=== PATIENT | male | born 1950 | race Caucasian/White ===

== ENCOUNTER 2025-03-17 07:51 | Inpatient (IN) ==
--- NOTE | 2025-03-17 08:09 | Emergency Department Note ---
Impression & Plan Ambulatory dysfunction Admission ED Provider Note HPI: History obtained from patient. The patient is a 74-year-old gentleman with morbid obesity, osteoarthritis of the bilateral knees, presents the emergency department with a chief complaint of a fall at home. Patient states he was trying to get to the bathroom this morning and he could not make it, he states his knees felt very weak. Patient states he had to slide to the ground utilizing the wall as a support. Patient states he then had to crawl on his knees to get back up. Patient then came to the ER to be assessed for ambulatory dysfunction and his fall. Patient states generally he feels weak. Patient states he has "[id number]" osteoarthritis in his bilateral knees for which she had some type of injection done yesterday in both knees. Patient states he feels like his knees are weak. On arrival here to the ED the patient does not have any focal deficits, he denies any focal complaint of pain, he otherwise appears to be in no acute distress on arrival. ROS: - Per HPI Differential Diagnosis: Acute on chronic deconditioning/ambulatory dysfunction, ambulatory dysfunction secondary to osteoarthritis, fracture/dislocation of the knee, arrhythmia, ACS, critical electrolyte abnormalities, acute kidney injury/dehydration, weakness secondary to infection/sepsis, amongst other potential pathologies. *Outpatient medications and allergy history reviewed. PE: General: Alert, morbidly obese, no acute distress HEENT: Normocephalic, trachea midline Eyes: Extraocular eye movement is intact, no scleral erythema Pulmonary: Clear to auscultation bilaterally, no wheezing Cardio: Regular rate and rhythm GI: Abdomen is soft to palpation : No suprapubic tenderness MSK: No evidence of trauma or malformation of the extremities, no edema, patient maintains flexion of the hips bilaterally Skin: There is erythema overlying the bilateral knees without any open wounds or lacerations, otherwise no evidence of rash Neuro: Alert, no focal deficits Psychiatric: Cooperative INDEPENDENT INTERPRETATIONS: monitoring coordinator: (As interpreted by myself): - An order was placed for continuous cardiac monitoring - Patient was noted to be in sinus rhythm with a rate of 80 EKG: (As interpreted by myself): Rate: 81 Rhythm: Normal sinus rhythm Intervals: Within normal limits ST changes: No ST elevation Time: 0800 Chest x-ray: (As interpreted by myself): No acute disease Medical Decision Making: IV was established and lab work obtained. Lab work shows no leukocytosis, hemoglobin is normal, platelet count is normal, CMP does not show any evidence of any critical findings. Troponin is negative x 1. EKG shows normal sinus rhythm without any evidence of any acute ischemic changes or arrhythmia per my interpretation. Urinalysis does not show any evidence of infection or ketones. X-ray imaging of the chest shows no acute disease, x-ray imaging of the bilateral knees does not show any evidence of fracture. Patient stated that he has had increased ambulatory dysfunction at home, he does have osteoarthritis in both of his knees. Ambulatory trial was attempted here in the ED without success. Patient was unable to walk even with utilization of his walker. At this point he will require admission for PT/OT consultation. I discussed this with the patient, he was in agreement for admission. Case was discussed with the on-call midlevel provider for [facility], and patient was placed for admission in stable condition. Consultants/Discussions held with other healthcare providers: - [facility] Hospitalist, Dr. Bolivar Disposition discussion held by myself with: - Patient Diagnosis: 1. Ambulatory dysfunction, acute 2. Bilateral knee abrasions, acute 3. Mechanical fall, acute Disposition: Admission Ramon Clark DO Emergency Medicine Past Med/Surg History Problem List (Updated 03/17/25 @ 13:23 by Ramon Clark DO) Ambulatory dysfunction (Acute) Benign localized prostatic hyperplasia with lower urinary tract symptoms (LUTS) Encounter for pre-operative examination Gross hematuria Hyperlipidemia High blood pressure Medical History Anxiety Bladder mass Degenerative disc disease Depression Hearing deficit High blood pressure History of skin cancer Hyperlipidemia Neuropathy Osteoarthritis Sleep apnea Spinal stenosis Surgical History H/O: vasectomy History of carpal tunnel release of both wrists History of colonoscopy History of elbow surgery History of lumbar fusion Hx of cholecystectomy Hx of tonsillectomy Family History Father Heart disease Sister Breast cancer Mother PONV (postoperative nausea and vomiting) Grandfather (Maternal) Diabetes Social History Smoking Status: Never smoker Second Hand Exposure: Yes ( A CHILD); Do You Dip or Chew Tobacco: No; Hx Alcohol Use: No Hx Substance Use: No Preferred Language: Salvadorean Communication Ability: Effective Foreign Languages Professor Required: No Beliefs That Will Affect Care: None marital status: Current Living Situation: Spouse current occupational status: retired Feels Safe at Home: Yes Diet: regular Assistive Devices: Cane, CPAP and Hearing Aid - Bilateral Allergies Allergies Allergy/AdvReac Type Severity Reaction Status Date / Time furosemide Allergy Intermediate RASH Verified 03/08/21 10:52 Quinolones Allergy Intermediate RASH Verified 03/08/21 10:52 amoxicillin AdvReac Intermediate RASH Verified 03/08/21 10:52 clavulanic acid AdvReac Intermediate RASH Verified 03/08/21 10:52 Home Meds Home Medications Medication Instructions Recorded Confirmed acetaminophen 500 mg tablet 1,000 mg PO TID 05/05/20 03/17/25 (Tylenol Extra Strength) aspirin 81 mg tablet,delayed 81 mg PO .MON,SAT,Saturday05/05/20 03/17/25 release bupropion HCl 100 mg tablet,12 hr 100 mg PO BID 05/05/20 03/17/25 sustained-release cholecalciferol (vitamin D3) 25 75 mcg PO PM 05/05/20 03/17/25 mcg (1,000 unit) capsule (Vitamin D3) gabapentin 300 mg capsule 600 mg PO QID 05/05/20 03/17/25 hydrocodone 5 mg-acetaminophen 325 0.5 tab PO TID PRN Pain 05/05/20 03/17/25 mg tablet lamotrigine 100 mg tablet 100 mg PO HS 05/05/20 03/17/25 multivitamin 1 tab PO QAM 05/05/20 03/17/25 pyridoxine (vitamin B6) 100 mg 100 mg PO BID 05/05/20 03/17/25 tablet (Vitamin B-6) sennosides 8.6 mg-docusate sodium 2 tab-cap PO BID 05/05/20 03/17/25 50 mg tablet (Senna-S) simvastatin 10 mg tablet 10 mg PO HS 05/05/20 03/17/25 valbenazine 80 mg capsule 80 mg PO HS 05/05/20 03/17/25 (Ingrezza) diclofenac sodium 1 % topical gel 2 g topical QID 03/17/25 03/17/25 finasteride 5 mg tablet 5 mg PO .DAILY@NOON 03/17/25 03/17/25 levothyroxine 75 mcg tablet 75 mcg PO DAILY 03/17/25 03/17/25 melatonin 3 mg tablet 3 mg PO HS 03/17/25 03/17/25 polyethylene glycol 3350 17 17 g PO DAILY PRN Constipation 03/17/25 03/17/25 gram/dose oral powder (Miralax) Results & Data (ED) Vital Signs Vital Signs - 24 hr 03/17/25 07:52 03/17/25 08:02 03/17/25 08:26 Temperature 36.5 C Temperature Source Oral Pulse Rate - Lying Pulse Rate - Sitting Pulse Rate - Standing Pulse Rate 82 74 Pulse Rate [Left Finger] Respiratory Rate 22 Respiratory Effort / Characteristics Non-Labored Spontaneous Respiratory Depth Normal Respiratory Pattern Regular Blood Pressure - Lying Blood Pressure - Sitting Blood Pressure- Standing Blood Pressure 150/88 H Blood Pressure [Left Arm] Blood Pressure Mean 108 Blood Pressure Mean [Left Arm] Pulse Oximetry 97 97 Oxygen Delivery Method Room Air Room Air Sepsis Recent Fever Within 48 Hours No Sepsis New/Unexplained Change in Mental Status N/A Sepsis Action Taken by Nursing No Action Required 03/17/25 08:31 03/17/25 09:30 03/17/25 10:00 Temperature Temperature Source Pulse Rate - Lying Pulse Rate - Sitting Pulse Rate - Standing Pulse Rate 75 67 75 Pulse Rate [Left Finger] Respiratory Rate 24 22 24 Respiratory Effort / Characteristics Respiratory Depth Respiratory Pattern Blood Pressure - Lying Blood Pressure - Sitting Blood Pressure- Standing Blood Pressure 141/79 H 156/91 H 143/78 H Blood Pressure [Left Arm] Blood Pressure Mean 81 127 107 Blood Pressure Mean [Left Arm] Pulse Oximetry 98 99 99 Oxygen Delivery Method Room Air Room Air Room Air Sepsis Recent Fever Within 48 Hours Sepsis New/Unexplained Change in Mental Status Sepsis Action Taken by Nursing 03/17/25 10:30 03/17/25 11:10 03/17/25 12:47 Temperature Temperature Source Pulse Rate - Lying 72 Pulse Rate - Sitting 92 H Pulse Rate - Standing 108 H Pulse Rate 73 76 Pulse Rate [Left Finger] Respiratory Rate 26 H Respiratory Effort / Characteristics Respiratory Depth Respiratory Pattern Blood Pressure - Lying 164/82 H Blood Pressure - Sitting 144/95 H Blood Pressure- Standing 116/77 Blood Pressure 155/80 H Blood Pressure [Left Arm] Blood Pressure Mean 100 Blood Pressure Mean [Left Arm] Pulse Oximetry 99 Oxygen Delivery Method Room Air Sepsis Recent Fever Within 48 Hours Sepsis New/Unexplained Change in Mental Status Sepsis Action Taken by Nursing 03/17/25 13:00 Temperature Temperature Source Pulse Rate - Lying Pulse Rate - Sitting Pulse Rate - Standing Pulse Rate Pulse Rate [Left Finger] 88 Respiratory Rate 16 Respiratory Effort / Characteristics Respiratory Depth Respiratory Pattern Blood Pressure - Lying Blood Pressure - Sitting Blood Pressure- Standing Blood Pressure Blood Pressure [Left Arm] 118/74 Blood Pressure Mean Blood Pressure Mean [Left Arm] 88 Pulse Oximetry 98 Oxygen Delivery Method Sepsis Recent Fever Within 48 Hours Sepsis New/Unexplained Change in Mental Status Sepsis Action Taken by Nursing Laboratory Data 03/17/25 08:22 03/17/25 08:22 Lab Results 03/17/25 03/17/25 Range/Units 07:57 08:22 WBC 8.69 (4.8-10.8) K/ul RBC 4.41 L (4.70-6.10) M/uL Hgb 14.1 (14.0-18.0) g/dl Hct 41.4 L (42.0-52.0) % MCV 93.9 (80.0-100.0) fL MCH 32.0 (25.0-34.0) pg MCHC 34.1 (32.0-36.0) g/dL RDW Std Deviation 45.8 (36.4-46.3) fL RDW Coeff of [place] 13.3 (11.5-14.5) % Plt Count 174 (130-400) K/uL MPV 10.1 (9.4-12.4) fL Immature Gran % (Auto) 0.6 % Neut % (Auto) 81.4 % Lymph % (Auto) 8.6 % Russell % (Auto) 9.3 % Eos % (Auto) 0.0 % Baso % (Auto) 0.1 % Neut # (Auto) 7.07 H (1.40-6.50) K/uL Lymph # (Auto) 0.75 L (1.20-3.40) K/uL Russell # (Auto) 0.81 H (0.11-0.59) K/uL Eos # (Auto) 0.00 (0.00-0.50) K/uL Baso # (Auto) 0.01 (0.00-0.20) K/uL Immature Gran # (Auto) 0.05 (0.01-0.20) K/uL PT 11.1 (9.0-12.0) Seconds INR 1.0 (0.9-1.1) Sodium 139 (136-145) mmol/L Potassium 4.2 (3.5-5.1) mmol/L Chloride 107 (98-107) mmol/L Carbon Dioxide 22 (21-32) mmol/L Anion Gap 10 (3-11) BUN 14 (6-23) mg/dl Creatinine 0.91 (0.6-1.4) mg/dl Est Cr Clr Drug Dosing 109.6 ml/min eGFR 88.44 BUN/Creatinine Ratio 15.4 (10-20) Glucose 126 H (70-99(Fasting)) mg/dl Calcium 9.1 (8.6-10.3) mg/dl Total Bilirubin 0.7 (0.2-1.0) mg/dl AST 17 (13-39) U/L ALT 12 (7-52) U/L Alkaline Phosphatase 53 (34-104) U/L Troponin I High Sens 2.5 (0-20) pg/ml Total Protein 6.7 (6.0-8.3) gm/dl Albumin 3.8 (3.4-5.0) gm/dl Globulin 2.9 (2.5-4.0) gm/dl Albumin/Globulin Ratio 1.3 (0.9-2) Lipase 12 (11-82) U/L Urine Color Yellow Urine Appearance Clear (Clear) Urine pH 7.0 (4.5-7.5) Ur Specific [place] 1.018 (1.000-1.030) Urine Protein Negative (Negative) Urine Glucose (UA) Negative (Negative) Urine Ketones Negative (Negative) Urine Blood Negative (Negative) Urine Nitrite Negative (Negative) Urine Bilirubin Negative (Negative) Urine Urobilinogen Negative (Negative) Ur Leukocyte Esterase Negative (Negative) Administered Medications Discontinued Medications Hydrocodone Bitart/Acetaminophen (Hydrocodone/Acetamophen 5/325mg Tab) Confirm Administered Dose 1 tab PO .STK-MED ONE Stop: 03/17/25 13:07 Last Admin: 03/17/25 13:09 Dose: 0.5 tab Documented By: AMIE Imaging Data Radiologist's Impression: Chest X-Ray 03/17/25 08:02 XR chest 1V portable CLINICAL HISTORY: weak COMPARISON STUDY: None FINDINGS: Lower thoracic spine neurostimulator lead is present. Heart size and pulmonary vasculature are normal. No effusion, consolidation, or pneumothorax. IMPRESSION: No acute findings. ACT 112: Negative or not required by law. Electronically signed by: Sunday Oreilly M.D. 03/17/2025 8:49 AM Knee X-Ray 03/17/25 08:06 XR knee LT 3V, XR knee RT 3V CLINICAL HISTORY: fall COMPARISON: None FINDINGS: There is severe medial compartment narrowing with osteophytosis at both knees consistent with osteoarthritis. There is a small metallic soft tissue foreign body in the medial superficial soft tissues of the left knee. No acute fracture or dislocation seen at either knee. IMPRESSION: 1. No fracture seen in either knee. 2. Otherwise as described. ACT 112: Negative or not required by law. Electronically signed by: Sunday Oreilly M.D. 03/17/2025 8:50 AM Knee X-Ray 03/17/25 08:06 XR knee LT 3V, XR knee RT 3V CLINICAL HISTORY: fall COMPARISON: None FINDINGS: There is severe medial compartment narrowing with osteophytosis at both knees consistent with osteoarthritis. There is a small metallic soft tissue foreign body in the medial superficial soft tissues of the left knee. No acute fracture or dislocation seen at either knee. IMPRESSION: 1. No fracture seen in either knee. 2. Otherwise as described. ACT 112: Negative or not required by law. Electronically signed by: Sunday Oreilly M.D. 03/17/2025 8:50 AM Discharge Plan Visit Data Chief Complaint: Leg Weakness, Bilateral Stated Complaint: WEAKNESS, UNABLE TO AMBULATE ED Provider: Ramon Clark Discharge Problem: Ambulatory dysfunction Forms Stand Alone Forms: [facility] Prescriptions Prescriptions: No Action multivitamin Tablet 1 tab PO QAM hydrocodone-acetaminophen 5-325 mg Tablet 0.5 tab PO TID PRN (Reason: Pain) sennosides-docusate sodium [Senna-S] 8.6-50 mg Tablet 2 tab-cap PO BID simvastatin 10 mg Tablet 10 mg PO HS aspirin 81 mg Tablet,Delayed Release (Dr/Ec) 81 mg PO .MON,WED,SATURDAY acetaminophen [Tylenol Extra Strength] 500 mg Tablet 1,000 mg PO TID bupropion HCl 100 mg Tablet Sustained-Release 12 Hr 100 mg PO BID gabapentin 300 mg Capsule 600 mg PO QID pyridoxine (vitamin B6) [Vitamin B-6] 100 mg Tablet 100 mg PO BID lamotrigine 100 mg Tablet 100 mg PO HS cholecalciferol (vitamin D3) [Vitamin D3] 25 mcg (1,000 unit) Capsule 75 mcg PO PM Ingrezza 80 mg Capsule 80 mg PO HS levothyroxine 75 mcg tablet 75 mcg PO DAILY melatonin 3 mg Tablet 3 mg PO HS polyethylene glycol 3350 [Miralax] 17 gram/dose Powder 17 g PO DAILY PRN (Reason: Constipation) diclofenac sodium 1 % gel 2 g TOPICAL QID finasteride 5 mg tablet 5 mg PO .DAILY@NOON Referrals Referrals: Rosemary Leonard MD [Primary Care Provider] -
[2025-03-17 08:31] LABS: Appearance Urine Clear (Clear); Bilirubin Urine Negative (Negative); Blood Urine Negative (Negative); Color Urine Yellow; Glucose Urine UA Negative (Negative); Ketones Urine Negative (Negative); Leukocyte Esterase Urine Negative (Negative); Nitrite Urine Negative (Negative); Protein Urine Negative (Negative); Specific Gravity Urine 1.018 (1.000-1.030); Urobilinogen Urine Negative (Negative)
[2025-03-17 08:45] LABS: Basophils # (auto) 0.01 K/uL (0.00-0.20); Basophils % (auto) 0.1 %; Hematocrit (blood only) 41.4 % (42.0-52.0); Hemoglobin 14.1 g/dl (14.0-18.0); Immature Granulocytes # (auto) 0.05 K/uL (0.01-0.20); Immature Granulocytes % (auto) 0.6 %; Lymphocytes # (auto) 0.75 K/uL (1.20-3.40); Lymphocytes % (auto) 8.6 %; Mean Corpuscular Hgb Conc 34.1 g/dL (32.0-36.0); Mean Corpuscular Volume 93.9 fL (80.0-100.0); Mean Platelet Volume 10.1 fL (9.4-12.4); Monocytes # (auto) 0.81 K/uL (0.11-0.59); Monocytes % (auto) 9.3 %; Neutrophils # (auto) 7.07 K/uL (1.40-6.50); Neutrophils % (auto) 81.4 %; Platelet Count 174 K/uL (130-400); RDW Coefficient of Variation 13.3 % (11.5-14.5); RDW Standard Deviation 45.8 fL (36.4-46.3); Red Blood Count 4.41 M/uL (4.70-6.10); White Blood Count 8.69 K/ul (4.8-10.8)
--- NOTE | 2025-03-17 08:50 | XRay Report ---
XR chest 1V portable CLINICAL HISTORY: weak COMPARISON STUDY: None FINDINGS: Lower thoracic spine neurostimulator lead is present. Heart size and pulmonary vasculature are normal. No effusion, consolidation, or pneumothorax. IMPRESSION: No acute findings. ACT 112: Negative or not required by law. Electronically signed by: Sunday Oreilly M.D. 03/17/2025 8:49 AM
--- NOTE | 2025-03-17 08:51 | XRay Report ---
XR knee LT 3V, XR knee RT 3V CLINICAL HISTORY: fall COMPARISON: None FINDINGS: There is severe medial compartment narrowing with osteophytosis at both knees consistent w ith osteoarthritis. There is a small metallic soft tissue foreign body in the medial superficial soft tissues of the left knee. No acute fracture or dislocation seen at either knee. IMPRESSION: 1. No fracture seen in either knee. 2. Otherwise as described. ACT 112: Negative or not required by law. Electronically signed by: Sunday Oreilly M.D. 03/17/2025 8:50 AM
[2025-03-17 08:58] LABS: Albumin Globulin Ratio 1.3 (0.9-2); Albumin Level 3.8 gm/dl (3.4-5.0); BUN Creatinine Ratio 15.4 (10-20); Bilirubin,Total 0.7 mg/dl (0.2-1.0); Calcium 9.1 mg/dl (8.6-10.3); Creatinine Clr Calc Pharmacy 109.6 ml/min; Globulin 2.9 gm/dl (2.5-4.0); Potassium 4.2 mmol/L (3.5-5.1); Total Protein 6.7 gm/dl (6.0-8.3)
[2025-03-17 09:03] LABS: Troponin I High Sensitivity 2.5 pg/ml (0-20)
[2025-03-17 09:16] LABS: Prothrombin Time 11.1 Seconds (9.0-12.0)
--- NOTE | 2025-03-17 10:37 | Electrocardiogram Report ---
Test Reason : Blood Pressure : */* mmHG Vent. Rate : 81 BPM Atrial Rate : 81 BPM P-R Int : 196 ms QRS Dur : 64 ms QT Int : 368 ms P-R-T Axes : 81 -23 37 degrees QTcB Int : 427 ms Normal sinus rhythm Inferior infarct , age undetermined Abnormal ECG When compared with ECG of 11-May-2020 09:52, Inferior infarct is now Present Confirmed by Miguel Angel Pickering ([id number]) on 03/17/2025 10:36:45 AM Referred By: Confirmed By: Miguel Angel Pickering
--- OUTSIDE RECORDS SUMMARY | 2025-03-17 11:08 | External Medical Summary ---
Author Name Unknown Address Unknown Organization K01:[facility] - [address] [facility] [address] [facility] [address] Laboratory Report Ordering Provider Test Date Status GLENDYMIKE 03/02/2025 10:35:31 Final Observation Date Value Abnormality Reference (Units ) Status T4, Free 03/02/2025 10:35:31 1.3 0.9-1.7 (n g/dL) Final Performing Location [facility] - [address] [facility] [address]
--- OUTSIDE RECORDS SUMMARY | 2025-03-17 11:08 | External Medical Summary | Summary of Care ---
Author Name Unknown Organization [facility] Address [address] [place] [address] Phone [phone] Care Team Providers Care Therapeutic Recreation Assistant Name Role Phone Rosemary Leonard MD Primary Care Provider [phone] Reason for Visit * Reason Comments Outpatient Testing Encounter Details Date Type Department Care Team (Late st Contact Info) Description 03/02/2025 10:30 AM EDT Laboratory Laboratory [address] [place] [phone] [place] [address] Flora type IIa hyperlipoproteinemia; Hypothyroidism; BPH with obstruction/lower urinary tract symptoms; Dyslipidemia, goal LDL below 130; Demyelinating neuropathy; Vitamin D deficiency Allergies Active Allergy Reactions Criticality Noted Date Comments Ciprofloxacin Hives 06/11/2001 blisters Furosemide Hives 06/11/2001 blisters documented as of this encounter (statuses as of 03/02/2025) Medications ZOCOR TABS 10 MG ORIndications:Mix ed dyslipidemia one tab by mouth daily at bedtime 90 2 2 Active ASPIRIN 81 MG PO TBEC daily Active MULTI-VITAMINS PO TABS daily Active clonazePAM (KLONOPIN) 0.5 MG Tablet 1 daily 6 Active HYDROcodone-aceta minophen 5-325 mg per tab 5-325 MG per tablet 1 three times daily as needed 6 Active pyridOXINE (VITAMIN B-6) 100 MG Tablet Take 1 Tablet by mouth in the morning. Active Valbenazine Tosylate (INGREZZA) 80 MG CAPS Take by mouth once. Active Cholecalciferol (VITAMIN D3) 125 MCG (5000 UT) Tablet Take 1 Capsule by mouth in the morning. Active Diclofenac Sodium 1 % External Gel (Voltaren) apply 2 grams to skin of knees four times a day 800 g 1 07/01/2024 12:14 PM EDT 4 Active Sennosides-Docusa te Sodium 8.6-50 MG Oral Tablet (Senna S) take 2 tablets by mouth in the morning and 2 tablets in the evening 360 Tablet 1 12/10/2024 3:18 PM EST 4 Active Simvastatin 10 MG Oral Tablet (Zocor) take one tablet by mouth at bedtime 90 Tablet 12/08/2024 11:14 AM EST 4 Active Gabapentin 300 MG Oral Capsule (Neurontin) take two capsules by mouth four times a day for numbness and pain of feet 720 Capsule 1 03/01/2025 6:11 PM EDT 4 Active Levothyroxine Sodium 75 MCG Oral Tablet (Levoxyl) take one tablet by mouth in the morning on empty stomach 90 Tablet 12/28/2024 10:42 AM EST 5 Active Finasteride 5 MG Oral Tablet (Proscar) take one tablet by mouth daily at noon 90 Tablet 01/14/2025 5:16 PM EST 5 Active buPROPion HCl ER (SR) 100 MG Oral Tablet Extended Release 12 Hour (Wellbutrin SR) take one tablet by mouth twice a day 180 Tablet 02/04/2025 3:58 PM EDT 5 Active lamoTRIgine 100 MG Oral Tablet (LaMICtal) take 1 tablet by mouth at night 90 Tablet 5 Active documented as of this encounter (statuses as of 03/02/2025) Active Problems Problem Noted Date Diagnosed Date Hx of actinic keratosis 12/14/2020 Polyneuropathy 08/19/2018 Numbness and tingling in both hands 01/22/2017 Carpal tunnel syndrome 11/22/2005 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 BACKACHE NOS 03/17/2003 LUMBAGO Mixed dyslipidemia GENERALIZED ANXIETY DIS OBESITY, UNSPECIFIED Sleep apnea Other seborrheic keratosis Sensorineural hearing loss, bilateral Presbyacusis Deviated nasal septum documented as of this encounter (statuses as of 03/02/2025) Immunizations Name Administration Dates Next Due COVID-19 mRNA, LNP-s, No Pre serve, 2-Dose Series (Pfizer) 09/05/2021 COVID-19, MRNA-LNP, PF, 30 M CG/0.3 mL, 12 YRS AND ABOVE, IM (PFIZER-Comirnaty) 09/22/2024 Season Influenza, Quad, PF, Adjuvanted, 65+ Yrs, IM (FLUAD) 09/09/2020 Seasonal Influenza Vac., MDV, IM, 0.5 mL (Fluzon e) 09/14/2002 Seasonal Influenza, High Dos e, Trivalent, PF, IM (Fluzone HD) 09/05/2024 Seasonal Influenza, PF, 6 M & above, IM , (FluLaval or Fluzone) 11/24/2018 Seasonal Influenza, Quadrivalent Hd (Fluzone Hd) 09/14/2023,09/14/2021 Seasonal Influenza, Quadrivalent, No Preserve, I M 11/02/2016,10/07/2015 Seasonal Influenza, Trivalen t, Adjuvanted, 65+ YRS, PF, (Fluad) 11/23/2019 documented as of this encounter Social History Tobacco Use Types Packs/Day Years Used Date Smoking Tobacco: Never Smokeless Tobacco: Never Alcohol Use Standard Drinks/Week Comments No 0 (1 standard drink = 0.6 oz pur e alcohol) Sex and Gender Information Value Date Recorded Sex Assigned at Not on file Legal Sex Male 5:27 AM EST Gender Identity Not on file Sexual Orientation Not on file documented as of this encounter Plan of Treatment Upcoming Encounters Date Type Department Care Team (Late st Contact Info) Description 01/25/2026 3:00 PM EST Office Visit [address] [place] [phone] Liberty Ramos PA-C [address] [place] [address] [place] [address] Pending Results Name Type Priority Associated Diagnoses Date /Time LIPID PANEL WITH DIRECT LDL IF TG IS HIGH Lab Routine 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 Dyslipidemia, goal LDL below 130 Demyelinating neuropathy Vitamin D deficiency 03/02/2025 10:35 AM EDT TSH Lab Routine 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 Dyslipidemia, goal LDL below 130 Demyelinating neuropathy Vitamin D deficiency 03/02/2025 10:35 AM EDT T3, FREE Lab Routine 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 Dyslipidemia, goal LDL below 130 Demyelinating neuropathy Vitamin D deficiency 03/02/2025 10:35 AM EDT T4, FREE Lab Routine 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 Dyslipidemia, goal LDL below 130 Demyelinating neuropathy Vitamin D deficiency 03/02/2025 10:35 AM EDT COMPREHENSIVE METABOLIC PANEL Lab Routine 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 Dyslipidemia, goal LDL below 130 Demyelinating neuropathy Vitamin D deficiency 03/02/2025 10:35 AM EDT PSA Lab Routine 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 Dyslipidemia, goal LDL below 130 Demyelinating neuropathy Vitamin D deficiency 03/02/2025 10:35 AM EDT CBC WITH WBC DIFFERENTIAL Lab Routine 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 Dyslipidemia, goal LDL below 130 Demyelinating neuropathy Vitamin D deficiency 03/02/2025 10:35 AM EDT 25-HYDROXY VITAMIN D Lab Routine 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 Dyslipidemia, goal LDL below 130 Demyelinating neuropathy Vitamin D deficiency 03/02/2025 10:35 AM EDT CBC Lab Routine 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 Dyslipidemia, goal LDL below 130 Demyelinating neuropathy Vitamin D deficiency 03/02/2025 10:35 AM EDT DIFFERENTIAL, AUTOMATED Lab Routine 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 Dyslipidemia, goal LDL below 130 Demyelinating neuropathy Vitamin D deficiency 03/02/2025 10:35 AM EDT Scheduled Procedures Name Priority Associated Diagnoses Date/Ti me COLONOSCOPY FLEXIBLE PROXIMAL DIAGNOSTIC Recall History of colon polyps Health Maintenance Due Date Last Done Comments Depression Screening 1962 Hepatitis C Screening 1968 DTap/Tdap Vaccines (1 - Tdap) 1969 Cologuard 1995 Sigmoidoscopy 1995 Pneumococcal Vaccine: 50+ Years (1 of 1 - PCV) 2000 Zoster Vaccines (1 of 2) 2000 Fecal Occult Blood Test 04/02/2013 04/02/20 12, 07/17/2011, 03/18/2009 Colonoscopy 01/15/2025 01/15/2020, 12/27, 12/10/2019, Additional history exists Colorectal Cancer Screening 01/15/2025 COVID-19 Vaccine ( season) 2025 09/22/2024, 09/05/2021 TSH 03/24/2025 03/24/2024, 07/27, 01/08/2023, Additional history exists Lipid Panel 03/24/2029 03/24/2024, 07/27, 05/23/2022, Additional history exists RETIRED - COLONOSCOPY-EVERY 5 YRS AGES 18-100 Discontinued 01/15/2020, 01/15/2020, 12/10/2019, Additional history exists Influenza Vaccine (FLU shot) Completed 09/05/2024, 09/05/2024, 09/14/2023, Additional history exists HPV (Gardasil) Vaccine Aged Out No lo nger eligible based on patient's age to complete this topic Hepatitis B Vaccine Aged Out No longe r eligible based on patient's age to complete this topic MENINGOCOCCAL (MENACTRA/MENVEO) Aged Out No longer eligible based on patient's age to complete this topic Meningitis B Vaccine (Bexsero/Trumemba) Aged Out No longer eligible based on patient's age to complete this topic documented as of this encounter Medical Devices Not on filedocumented as of this encounter Visit Diagnoses Diagnosis Flora type IIa hyperlipoproteinemia Pure hypercholesterolemia Hypothyroidism Unspecified hypothyroidism BPH with obstruction/lower urinary tract symptoms Hypertrophy of prostate with urinary obstruction and other lower urinary tract symptoms (LUTS) Dyslipidemia, goal LDL below 130 Other and unspecified hyperlipidemia Demyelinating neuropathy Mononeuritis of unspecified site Vitamin D deficiency Unspecified vitamin D deficiency documented in this encounter Care Teams Therapeutic Recreation Assistant Relationship Specialty Start Date End Date Rosemary Leonard MD [address] [place] [address] [place] [id number] PCP - General Internal Medicine 10/06/14 documented as of this encounter
--- OUTSIDE RECORDS SUMMARY | 2025-03-17 11:08 | External Medical Summary ---
Author Name Unknown Address Unknown Organization [id number]:LAB[facility]ATORY [facility] [place] - [address] [facility] [facility] [address] Laboratory Report Ordering Provider Test Date Status MIKE PIKE 03/02/2025 10:35:31 Final Observation Date Value Abnormality Reference (Units ) Status TSH 03/02/2025 10:35:31 1.30 0.27-4.20 (uIU/mL) Final Performing Location LABORATORY [facility] - [address] [facility] [address]
--- OUTSIDE RECORDS SUMMARY | 2025-03-17 11:08 | External Medical Summary | Summary of Care ---
Author Name Unknown Organization [facility] Address [address] [place] [address] Phone [phone] Care Team Providers Care Orchard Manager Name Role Phone Rosemary Leonard MD Primary Care Provider [phone] Reason for Visit * Reason Comments Outpatient Testing Encounter Details Date Type Department Care Team (Late st Contact Info) Description 03/02/2025 10:30 AM EDT Laboratory Laboratory [address] [place] [phone] [place] [address] Flora type IIa hyperlipoproteinemia; Hypothyroidism; BPH with [...] [address] [place] [phone] Liberty Ramos PA-C [address] [place] [address] [place] [address] Pending Results Name Type [...] deficiency documented in this encounter Care Teams Orchard Manager Relationship Specialty Start Date End Date Rosemary Leonard MD [address] [place] [address] [place] [id number] PCP - General Internal Medicine 10/06/14 documented as of this encounter
--- OUTSIDE RECORDS SUMMARY | 2025-03-17 11:08 | External Medical Summary | Summary of Care ---
Author Name Unknown Organization [facility] Address [address] [place] [address] Phone [phone] Care Team Providers Care Data Warehousing Manager Name Role Phone Rosemary Leonard MD Primary Care Provider [phone] Encounter Details Date Type Department Care Team (Late st Contact Info) Description 03/12/2025 Orders Only Cardiac Studies, [facility] [address] [place] [address] Requisition, External Radiology [address] [place] [address] Other abnormalities of heart beat*; Dizziness and giddiness; Pure hypercholesterolemia, unspecified Allergies Active Allergy Reactions Criticality Noted Date Comments Ciprofloxacin Hives 06/11/2001 blisters Furosemide Hives 06/11/2001 blisters documented as of this encounter (statuses as of 03/12/2025) Medications ZOCOR TABS 10 MG ORIndications:Mix ed [...] 1 07/01/2024 12:14 PM EDT 4 Active Gabapentin 300 MG Oral Capsule (Neurontin) take two capsules by mouth four times a day for numbness and pain of feet 720 Capsule 1 03/01/2025 6:11 PM EDT 4 Active buPROPion HCl ER (SR) 100 MG Oral Tablet Extended Release 12 Hour (Wellbutrin SR) take one tablet by mouth twice a day 180 Tablet 02/04/2025 3:58 PM EDT 5 Active lamoTRIgine 100 MG Oral Tablet (LaMICtal) take 1 tablet by mouth at night 90 Tablet 03/03/2025 10:12 AM EDT 5 Active Simvastatin 10 MG Oral Tablet (Zocor) take one tablet by mouth at bedtime 90 Tablet 5 Active Sennosides-Docusa te Sodium 8.6-50 MG Oral Tablet (Senna S) take 2 tablets by mouth in the am and 2 in the pm 360 Tablet 5 Active Finasteride 5 MG Oral Tablet (Proscar) take one tablet by mouth daily at noon 90 Tablet 5 Active Levothyroxine Sodium 75 MCG Oral Tablet (Levoxyl) take one tablet by mouth in the morning on empty stomach 90 Tablet 5 Active documented as of this encounter (statuses as of 03/12/2025) Active Problems Problem Noted Date Diagnosed Date Hx of actinic keratosis 12/14/2020 Polyneuropathy 08/19/2018 Numbness and tingling in both hands 01/22/2017 Carpal tunnel syndrome 11/22/2005 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 BACKACHE NOS 03/17/2003 LUMBAGO Mixed dyslipidemia GENERALIZED ANXIETY DIS OBESITY, UNSPECIFIED Sleep apnea Other seborrheic keratosis Sensorineural hearing loss, bilateral Presbyacusis Deviated nasal septum documented as of this encounter (statuses as of 03/12/2025) Immunizations Name Administration Dates Next Due COVID-19 mRNA, LNP-s, No Pre serve, 2-Dose Series (Pfizer) 09/05/2021 COVID-19, MRNA-LNP, PF, 30 M CG/0.3 mL, 12 YRS AND ABOVE, IM (PFIZER-Comirnaty) 09/22/2024 Season Influenza, Quad, PF, Adjuvanted, 65+ Yrs, IM (FLUAD) 09/09/2020 Seasonal Influenza, High Dos e, Trivalent, PF, [...] Care Team (Late st Contact Info) Description 03/15/2025 8:15 AM EDT Cardiac Studies Cardiac Studies, [facility] [address] [place] [phone] 03/15/2025 8:30 AM EDT Cardiac Studies Cardiac Studies, [facility] [address] [place] [phone] 01/25/2026 3:00 PM EST Office Visit [address] [place] [phone] Liberty Ramos PA-C [address] [place] [address] [place] [id number] Scheduled Orders Name Type Priority Associated Diagnoses Orde r Schedule HOLTER COMPLETE (HOSPITAL BASED) Holter Routine Other abnormalities of heart beat Dizziness and giddiness Pure hypercholesterolemia, unspecified Expected: 03/15/2025, Expires: 04/11/2026 EKG EKG Routine Other abnormalities of heart beat Dizziness and giddiness Pure hypercholesterolemia, unspecified Expected: 03/15/2025, Expires: 04/11/2026 Scheduled Procedures Name Priority Associated Diagnoses Date/Ti [...] Vaccine ( season) 2025 09/22/2024, 09/05/2021 TSH 03/02/2026 03/02/2025, 02/25, 08/19/2023, Additional history exists Lipid Panel 03/02/2030 03/02/2025, 02/25, 08/19/2023, Additional history exists RETIRED - COLONOSCOPY-EVERY 5 [...] as of this encounter Visit Diagnoses Diagnosis Other abnormalities of heart beat- Primary Dizziness and giddiness Pure hypercholesterolemia, unspecified documented in this encounter Care Teams Data Warehousing Manager Relationship Specialty Start Date End Date Rosemary Leonard MD [address] [place] [address] [place] [address] PCP - General Internal Medicine 10/06/14 documented as of this encounter
--- OUTSIDE RECORDS SUMMARY | 2025-03-17 11:08 | External Medical Summary ---
Author Name Unknown Address Unknown Organization [id number]:LABORATORY [facility] [place] - [address] [place] [address] Laboratory Report Ordering Provider Test Date Status GLENDYMIKE 03/02/2025 10:35:31 Final Deficient: <20 ng/mL
Ins ufficient: 20-29 ng/mL
Recommended/Optimum:30-50 ng/mL

Vitamin D intoxication is rare. If suspicious of Vitamin D toxicity, evaluation of serum Calcium and PTH is recommended. Observation Date Value Abnormality Reference (Units ) Status 25-OH Vitamin D total 03/02/2025 10:35:31 53 >19 (ng/mL) Final Performing Location LABORATORY [facility] - [address] [place] [address]
--- OUTSIDE RECORDS SUMMARY | 2025-03-17 11:09 | External Medical Summary | Summary of Care ---
Author Name Unknown Organization [facility] Address [address] [place] [facility] [place] [address] Phone [phone] Care Team Providers Care Campaign Consultant Name Role Phone Rosemary Leonard MD Primary Care Provider [phone] Reason for Visit * Reason Comments Skin Check Pt presents for rout ine skin check, reports a rough spot on ear and a lesion on cheek he would like evaluated today.Hx: AK Encounter Details Date Type Department Care Team (Late st Contact Info) Description 12/16/2024 1:40 PM EST Office Visit Dermatology [address] [place] [address] Liberty Ramos PA-C [address] [place] [address] [place] [address] Actinic keratosis*; Skin exam, screening for cancer; Sebaceous hyperplasia of face; Seborrheic keratosis Allergies Active Allergy Reactions Criticality Noted Date Comments Ciprofloxacin Hives 06/11/2001 blisters Furosemide Hives 06/11/2001 blisters documented as of this encounter (statuses as of 12/16/2024) Medications ZOCOR TABS 10 MG ORIndications:M ixed dyslipidemia one tab by mouth daily at bedtime 90 2 06/16/20 02 Active ASPIRIN 81 MG PO TBEC daily Active MULTI-VITAMINS PO TABS daily Active clonazePAM (KLONOPIN) 0.5 MG Tablet 1 daily 06/04/20 16 Active HYDROcodone-mallory taminophen 5-325 mg per tab 5-325 MG per tablet 1 three times daily as needed 06/04/20 16 Active pyridOXINE (VITAMIN B-6) 100 MG Tablet Take 1 Tablet by mouth in the morning. Active Valbenazine Tosylate (INGREZZA) 80 MG CAPS Take by mouth once. Active Cholecalciferol (VITAMIN D3) 125 MCG (5000 UT) Tablet Take 1 Capsule by mouth in the morning. Active Finasteride 5 MG Oral Tablet (Proscar) take one tablet by mouth daily at noon 90 Tablet 4 9:56 AM EDT 04/02/20 24 Active Diclofenac Sodium 1 % External Gel (Voltaren) apply 2 grams to skin of knees four times a day 800 g 1 4 12:14 PM EDT 06/29/20 24 Active Levothyroxine Sodium 75 MCG Oral Tablet (Levoxyl) take one tablet by mouth in the morning on empty stomach 90 Tablet 4 12:03 PM EDT 07/16/20 24 Active Sennosides-Docu sate Sodium 8.6-50 MG Oral Tablet (Senna S) take 2 tablets by mouth in the morning and 2 tablets in the evening 360 Tablet 1 5 3:18 PM EST 08/04/20 24 Active buPROPion HCl ER (SR) 100 MG Oral Tablet Extended Release 12 Hour (Wellbutrin SR) take one tablet by mouth twice a day 180 Tablet 4 4:45 PM EST 11/02/20 24 Active lamoTRIgine 100 MG Oral Tablet (LaMICtal) take 1 tablet every night 90 Tablet 4 2:35 PM EST 11/02/20 24 Active Simvastatin 10 MG Oral Tablet (Zocor) take one tablet by mouth at bedtime 90 Tablet 5 11:14 AM EST 11/09/20 24 Active Gabapentin 300 MG Oral Capsule (Neurontin) take two capsules by mouth four times a day for numbness and pain of feet 720 Capsule 1 4 3:30 PM EST 11/12/20 24 Active TRAMADOL HCL 50 MG PO TBDP 2 tabs three times daily as needed 025 Discontinued LAMICTAL 100 MG PO TABS 1 TABLET DAILY 12/27/19 15 025 Discontinued gabapentin (NEURONTIN) 300 MG Capsule 2 cap three times daily 05/02/20 16 025 Discontinued buPROPion (WELLBUTRIN) 100 MG Tablet Take 1 Tablet by mouth in the morning and 1 Tablet before bedtime. 025 Discontinued Metoprolol Succinate ER 25 MG Oral Tablet Extended Release 24 Hour (toPROL XL) take one-half tablet by mouth every night 45 Tablet 4 9:56 AM EDT 04/02/20 24 025 Discontinued Metoprolol Succinate ER 25 MG Oral Tablet Extended Release 24 Hour (toPROL XL) take one-half tablet by mouth every night 45 Tablet 4 11:34 AM EST 10/26/20 24 025 Discontinued(Me dication List Clean Up) Finasteride 5 MG Oral Tablet (Proscar) take one tablet by mouth at noon 90 Tablet 11/09/20 24 025 Discontinued(Me dication List Clean Up) Levothyroxine Sodium 75 MCG Oral Tablet (Levoxyl) take one tablet by mouth in the morning on empty stomach 90 Tablet 1 11/09/20 24 025 Discontinued(Me dication List Clean Up) Sennosides-Docu sate Sodium 8.6-50 MG Oral Tablet (Senna S) take 2 tablets by mouth in the morning and 2 in the afternoon 360 Tablet 1 11/09/20 24 025 Discontinued(Me dication List Clean Up) documented as of this encounter (statuses as of 12/16/2024) Active Problems Problem Noted Date Diagnosed Date Hx of actinic keratosis 12/14/2020 Polyneuropathy 08/19/2018 Numbness and tingling in both hands 01/22/2017 Carpal tunnel syndrome 11/22/2005 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 The best protection is sun avoidance. Seek shade if you can, especially between 10am to 4pm (peak sun hours). 2. Use sunscreen with an SPF (Sun Protection Factor - the number on most sunscreen bottles) of 30 or more that protects from Ultraviolet A (UVA) and Ultraviolet B (UVB) wavelength light (strongly recommend SPF 50). This is referred to as broad spectrum sun protection because it protects from most wa velengths in both spectrums of UVA and UVB light. Unfortunately, even though the protection is broad it is not complete, therefore making sun avoidance the best protection. UVB and UVA have both beenimplicated in causing skin cancers. Older sunscreens only protected from UVB and sunscreens with added UVA protection should contain Titanium dioxide, Zinc oxide, or Avobenzone. Other oil free, non-comedogenic lotion with SPF 30 or greater is fine. 3. Use sun protection if outside for 15 minutes or more. Apply 20-30 minutes before going out and reapply every 1-2 hours. No sunscreen is truly water ''proof'' and it will wash away with sweat, swimming and rubbing. 4. Wear tightly woven, loose fitting (cooler) long sleeved clothing, UV-blocking sun glasses (eyes need protection as well) and wide-brimmed hatwear (no straw hats with holes because light still getsthrough). Strongly recommended *Neutrogena Pure and Free Baby SPF 60 (have separate face and body lotions) orCeraVe AM facial lotion (with SPF 30). If looking for non toxic alternatives-look for non-cyndy particle zinc. Product examples; Think sport, Think baby, Thinkful, [employer], [employer], [place] baby. "Baby" products can be used for all ages. ------ Skin Cryosurgery (FREEZING) Instructions Most areas treated by freezing will need very little care. You may wash normally with soap and water and leave any small crusts in place. Vaseline to treated areas 2-3 times per day is a good idea, you do not need to keep them covered with bandages. If a large blister forms and breaks, you will want to apply a light dressing to the area. CHANGE DRESSING ONCE DAILY 1. Wash hands and remove the original dressing(s) in 12-24 hours. 2. Gently clean wound(s) with soap and water. Rinse with water and pat the wound dry. 3. Apply a thin layer of Vaseline ointment with a Q-tip. 4. Cover with a bandage if area(s) is not on the face or scalp. A dressing is not required on the face or scalp. Use non-adherent dressing and paper tape if you are sensitive to band-aid adhesive sensitive. 5. If you have any concerns about the healing wound, please either or our main Dermatology office in [place] at [phone]. If an emergency, please go to your nearest Emergency Department. documented in this encounter Progress Notes * Germán Bonilla MD - 12/16/2024 2:16 PM EST I have seen and examined the patient via teledermatology review of chart note and photos with Liberty Ramos PA-C. I have reviewed and agree with the assessment and plan. * Liberty Ramos PA-C - 12/16/2024 1:40 PM EST SUBJECTIVE: History of Present Illness: Mynor Thomas is a 73 year old male seen today for follow up of lesion/full skin exam. Previous office visit: 03/28/2022 Last attempted treatments include: cryo to AKs Rough spot on ear and cheek, no tx to date. 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 REVIEW OF SYSTEMS: SKIN: No other new or changing moles. HEME/LYMPH: No new or enlarging lumps or bumps. CONSTITUTIONAL: No nausea, vomiting, fevers, chills, diarrhea. No recent unintended weight loss, night sweats, appetite or malaise. RESP: negative MSK/EXT: Negative or as per HPI GI: negative CV: Negative or as per HPI Rest of systems are negative or as per HPI SKIN CANCER HX: NONE, actinic keratoses Reviewed, same day as visit, 0 [facility] Dermatology lab work(s)/pathology report(s) as well as those sent by referring provider prior to seeing pt. MEDICA TIONS: Current Outpatient Medications Medication Sig Dispense Refill ZOCOR TABS 10 MG OR one tab by mouth daily at bedtime 90 2 ASPIRIN 81 MG PO TBEC daily MULTI-VITAMINS PO TABS daily clonazePAM (KLONOPIN) 0.5 MG Tablet 1 daily HYDROcodone-acetaminophen 5-325 mg per tab 5-325 MG per tablet 1 three times daily as needed pyridOXINE (VITAMIN B-6) 100 MG Tablet Take 1 Tablet by mouth in the morning. Valbenazine Tosylate (INGREZZA) 80 MG CAPS Take by mouth once. Cholecalciferol (VITAMIN D3) 125 MCG (5000 UT) Tablet Take 1 Capsule by mouth in the morning. Finasteride 5 MG Oral Tablet (Proscar) take one tablet by mouth daily at noon 90 Tablet 0 Diclofenac Sodium 1 % External Gel (Voltaren) apply 2 grams to skin of knees four times a day 800 g1 Levothyroxine Sodium 75 MCG Oral Tablet (Levoxyl) take one tablet by mouth in the morning on empty stomach 90 Tablet 0 Sennosides-Docusate Sodium 8.6-50 MG Oral Tablet (Senna S) take 2 tablets by mouth in the morning and 2 tablets in the evening 360 Tablet 1 buPROPion HCl ER (SR) 100 MG Oral Tablet Extended Release 12 Hour (Wellbutrin SR) take one tablet by mouth twice a day 180 Tablet 0 lamoTRIgine 100 MG Oral Tablet (LaMICtal) take 1 tablet every night 90 Tablet 0 Simvastatin 10 MG Oral Tablet (Zocor) take one tablet by mouth at bedtime 90 Tablet 0 Gabapentin 300 MG Oral Capsule (Neurontin) take two capsules by mouth four times a day for numbnessand pain of feet 720 Capsule 1 Sennosides-Docusate Sodium 8.6-50 MG Oral Tablet (Senna S) take 2 tablets by mouth in the morning and 2 in the afternoon 360 Tablet 1 No current facility-administered medications for this visit. ALLERG IES: Ciprofloxacin and Furosemide OBJECT BRITTANY: GEN: alert, no distress, appears oriented, elderly, increased BMI, pleasant and cooperative, ambulates with a walker. SKIN: Detailed exam of hair, face including lids and lips, neck, chest, abdomen, back, bilateral upper ext. (arm, hand, fingers), bilateral lower ext. (leg, foot, toes), palpation of scalp, fingernails, toenails, inguinal areas, groin (penis, scrotum and perineum), buttocks and anus completed: 1. R superior helix and L lateral cheek-white/yellow hyperkeratotic papule and pink-red scaly papule, non indurated. 2. Face-few yellow 2-4mm lobulated papules with a central delle located at the central facial areas. 3. Trunk/bilat arms-Few sharply defined, variegated brown, waxy flat papules with velvety to finelyverrucous surfaces. ASSESS MENT/PLAN: 1. Actinic keratoses (x2) on R superior helix and L lateral cheek-Cryosurgery explained to the patient. Discussed risk of blistering, crusting, infection, scarring, reoccurrence of lesions, hypopigmentation, post inflammatory hyperpigmentation with pt prior to procedure. Verbal consent obtained. Time out called immediately prior to procedure and patient identification and site verified. Cryo therapy performed with Liquid Nitrogen via cryo spray unit to lesion (s) noted above. Location noted in physical exam. Post op course explained. 2. Sebaceous hyperplasia on face-no tx needed, pt given reassurance. 3. Seborrheic/Benign Keratosis(-es) on trunk/bilat arms-no tx needed, pt given reassurance. Skin cancer brochure given at previous office visit (pt declined need for another) and ABCDE's discussed with patient. Annual full body skin examination (unless I recommended otherwise), self-examination, and sun protection (SPF 30+ daily to sun exposed areas, with reapplication every 1-2 hours when out in sun for long periods of time) advised and discussed. Recommended sooner follow up for new or changing lesions. These changes include rapid enlargement, changes in color or shape or symptoms, bleeding, or other concerns. The common features and behavior of non-melanoma skin cancers (e.g. BCC/SCC) as well as the ABCDEs and ugly duckling features of melanoma were also reviewed. Patient with today. Photo(s) of #1-3 taken, pt verbally consented to having photo(s) taken. Follow-up: 1 year for full skin exam Applicable photos (if any) and chart reviewed by Dr. Germán Bonilla. Presumed diagnoses, expected natural histories, and management options discussed with the patient at length. Questions were addressed and anticipatory guidance provided. They were instructed to contact me if additional questions, concerns, or problems develop in the interim. -There were no barriers to learning and no other pain was related to today's visit. The patient and/or person accompanying patient demonstrates understanding of the visit and treatment. Liberty Ramos PA-C 12/16/2024 1:24 PM Dermatology [address] [place] [address] documented in this encounter Nursing Notes * Leti Lara CMA - 12/16/2024 1:19 PM EST Chief Complaint Patient presents with Skin Check Pt presents for routine skin check, reports a rough spot on ear and a lesion on cheek he would likeevaluated today. Hx: AK documented in this encounter Plan of Treatment Upcoming Encounters Date Type Department Care Team (Late st Contact Info) Description 01/25/2026 3:00 PM EST [facility] [address] [place] [phone] Liberty Ramos PA-C [address] [place] [address] [place] [address] Scheduled Procedures Name Priority Associated Diagnoses Date/Ti [...] Additional history exists Colorectal Cancer Screening 01/15/2025 TSH 03/24/2025 03/24/2024, 07/27, 01/08/2023, Additional history exists Lipid Panel 03/24/2029 03/24/2024, 07/27, 05/23/2022, Additional history exists RETIRED - COLONOSCOPY-EVERY 5 YRS AGES 18-100 Discontinued 01/15/2020, 01/15/2020, 12/10/2019, Additional history exists Influenza Vaccine (FLU shot) Completed 09/05/2024, 09/05/2024, 09/14/2023, Additional history exists COVID-19 Vaccine Completed 09/22/2024, 09/05/2021 HPV (Gardasil) Vaccine Aged Out No lo nger eligible based on patient's age to complete this topic Hepatitis B Vaccine Aged Out No longe r eligible based on patient's age to complete this topic MENINGOCOCCAL (MENACTRA/MENVEO) Aged Out No longer eligible based on patient's age to complete this topic documented as of this encounter Medical Devices Not on filedocumented as of this encounter Procedures Procedure Name Priority Date/Time Associated Diagnosis Comments DERM EXAM - DERM (IMAGES ONLY, NO REPORT) Routine 12/16/2024 1:47 PM EST Skin exam, screening for cancer Actinic keratosis Sebaceous hyperplasia of face Seborrheic keratosis documented in this encounter Results * DERM EXAM - DERM (IMAGES ONLY, NO REPORT) (12/16/2024 1:47 PM EST) Narrative Scheduling, Silent - 12/16/2024 1:47 PM EST This is an imaging study not interpreted or resulted by a [facility] or [facility] contracted radiologist. Liberty Ramos PA-C RADIOLOGY ([facility] ) Final Result documented in this encounter Visit Diagnoses Diagnosis Actinic keratosis- Primary Skin exam, screening for cancer Screening for malignant neoplasm of the skin Sebaceous hyperplasia of face Other specified disease of sebaceous glands Seborrheic keratosis Other seborrheic keratosis documented in this encounter Care Teams Campaign Consultant Relationship Specialty Start Date End Date Rosemary Leonard MD [address] [place] [address] [place] [address] PCP - General Internal Medicine 10/06/14 documented as of this encounter
--- OUTSIDE RECORDS SUMMARY | 2025-03-17 11:09 | External Medical Summary | Summary of Care ---
Author Name Unknown Organization [facility] Address [address] [facility] [place] [address] Phone [phone] Care Team Providers Care Flight Manager Name Role Phone Rosemary Leonard MD Primary Care Provider [phone] Encounter Details Date Type Department Care Team (Late st Contact Info) Description 09/22/2024 10:00 AM EDT Nurse Only Ancillary [address] [place] [address] [place] Nurse [address] [place] [address] Arrived Allergies Active Allergy Reactions Criticality Noted Date Comments Ciprofloxacin Hives 06/11/2001 blisters Furosemide Hives 06/11/2001 blisters documented as of this encounter (statuses as of 09/22/2024) Medications Medication Sig Dispensed Refills Start Date End Date Status ZOCOR TABS 10 MG ORIndications:Mixed dyslipidemia one tab by mouth daily at bedtime 90 2 06/16/2002 Active TRAMADOL HCL 50 MG PO TBDP 2 tabs three times daily as needed Active ASPIRIN 81 MG PO TBEC daily Active MULTI-VITAMINS PO TABS daily Active LAMICTAL 100 MG PO TABS 1 TABLET DAILY 12/27/2014 Active clonazePAM (KLONOPIN) 0.5 MG Tablet 1 daily 06/04/2016 Active HYDROcodone-acetamin ophen 5-325 mg per tab 5-325 MG per tablet 1 three times daily as needed 06/04/2016 Active gabapentin (NEURONTIN) 300 MG Capsule 2 cap three times daily 05/02/2016 Active buPROPion (WELLBUTRIN) 100 MG Tablet Take 100 mg by mouth 2 times a day. Active pyridOXINE (VITAMIN B-6) 100 MG Tablet Take 100 mg by mouth daily. Active Valbenazine Tosylate (INGREZZA) 80 MG CAPS Take by mouth once. Active Cholecalciferol (VITAMIN D3) 125 MCG (5000 UT) Tablet Take 5,000 Units by mouth daily. Active Finasteride 5 MG Oral Tablet (Proscar) take one tablet by mouth daily at noon 90 Tablet 04/02/2024 Active Metoprolol Succinate ER 25 MG Oral Tablet Extended Release 24 Hour (toPROL XL) take one-half tablet by mouth every night 45 Tablet 04/02/2024 Active Diclofenac Sodium 1 % External Gel (Voltaren) apply 2 grams to skin of knees four times a day 800 g 1 06/29/2024 Active Levothyroxine Sodium 75 MCG Oral Tablet (Levoxyl) take one tablet by mouth in the morning on empty stomach 90 Tablet 07/16/2024 Active Levothyroxine Sodium 75 MCG Oral Tablet (Levoxyl) take one tablet by mouth in the morning on empty stomach 90 Tablet 07/16/2024 Active buPROPion HCl ER (SR) 100 MG Oral Tablet Extended Release 12 Hour (Wellbutrin SR) take one tablet by mouth twice a day 180 Tablet 08/04/2024 Active Finasteride 5 MG Oral Tablet (Proscar) take one tablet by mouth at noon 90 Tablet 08/04/2024 Active Metoprolol Succinate ER 25 MG Oral Tablet Extended Release 24 Hour (toPROL XL) take one-half tablet by mouth every night 45 Tablet 08/04/2024 Active Sennosides-Docusate Sodium 8.6-50 MG Oral Tablet (Senna S) take 2 tablets by mouth in the morning and 2 tablets in the evening 360 Tablet 1 08/04/2024 Active Simvastatin 10 MG Oral Tablet (Zocor) take one tablet by mouth at bedtime 90 Tablet 08/04/2024 Active Gabapentin 300 MG Oral Capsule (Neurontin) take 2 capsules by mouth four times a day for numbness and pain of feet 720 Capsule 08/05/2024 Active lamoTRIgine 100 MG Oral Tablet (LaMICtal) take 1 tablet every night 90 Tablet 09/07/2024 Active documented as of this encounter (statuses as of 09/22/2024) Active Problems Problem Noted Date Diagnosed Date Hx of actinic keratosis 12/14/2020 Polyneuropathy 08/19/2018 Numbness and tingling in both hands 01/22/2017 Carpal tunnel syndrome 11/22/2005 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 BACKACHE NOS 03/17/2003 LUMBAGO Mixed dyslipidemia GENERALIZED ANXIETY DIS OBESITY, UNSPECIFIED Sleep apnea Other seborrheic keratosis Sensorineural hearing loss, bilateral Presbyacusis Deviated nasal septum documented as of this encounter (statuses as of 09/22/2024) Immunizations Name Administration Dates Next Due COVID-19 mRNA, LNP-s, No Pre serve, 2-Dose Series ([employer]) 09/05/2021 COVID-19, MRNA-LNP, 24-25, P R, 30MCG/0.3ML, IM, 12YRS AND ABOVE ([employer]) 09/22/2024 Season Influenza, Quad, PF, Adjuvanted, 65+ [...] drink = 0.6 oz pur e alcohol) Utilities Answer Date Recorded Do you have trouble paying y our heating, water, or electric bill? (Adult - for ages 18 years and over) Not on file 05/12/2024 Is your family able to pay t he heat, water, or electric bill? (Household - for ages 0-17 years) Not on file 05/12/2024 Does your family have access to good internet? (Household - for ages 0-17 years) Not on file 05/12/2024 Social Connections Answer Date Recorded How often do you feel lonely or isolated from those around you? (Adult - for ages 18 years and over) Not on file 05/12/2024 Sex and Gender Information Value Date Recorded Sex Assigned at Not on file Gender Identity Not on file Sexual Orientation Not on file Job Start Date Occupation Industry Not on file Not on file Not on file documented as of this encounter Plan of Treatment Upcoming Encounters Date Type Department Care Team (Late st Contact Info) Description 12/16/2024 1:40 PM EST Office Visit Dermatology [address] [place] [address] Liberty Raoms PA-C [address] [place] [address] [place] [address] Scheduled Procedures Name Priority Associated Diagnoses Date/Ti me COLONOSCOPY FLEXIBLE PROXIMAL DIAGNOSTIC Recall History of colon polyps Health Maintenance Due Date Last Done Comments Depression Screening 1962 Hepatitis C Screening 1968 DTap/Tdap Vaccines (1 - Tdap) 1969 Cologuard 1995 Sigmoidoscopy 1995 Zoster Vaccines (1 of 2) 2000 Fecal Occult Blood Test 04/02/2013 04/02/20 12, 07/17/2011, 03/18/2009 Pneumococcal Vaccine: 65+ Years (1 of 1 - PCV) 2015 Colonoscopy 01/15/2025 01/15/2020, 12/27, 12/10/2019, Additional history [...] Not on filedocumented as of this encounter Care Teams Flight Manager Relationship Specialty Start Date End Date Rosemary Leonard MD [address] [place] [address] [place] [address] PCP - General Internal Medicine 10/06/14 documented as of this encounter
--- OUTSIDE RECORDS SUMMARY | 2025-03-17 11:09 | External Medical Summary ---
Author Name Unknown Address Unknown Organization [id number]:[facility] - [address] [facility] [place] [address] Laboratory Report Ordering Provider Test Date Status MIKE PIKE 03/02/2025 10:35:31 Final Observation Date Value Abnormality Reference (Units ) Status Triglyceride 03/02/2025 10:35:31 120 <=174 ( mg/dL) Final Triglyceride Reference Range s (mg/dL):
<150 Acceptable
150-174 Borderline high
175-499 High
>=500 Very high Cholesterol 03/02/2025 10:35:31 149 <200 (mg /dL) Final Total Cholesterol Reference Ranges (mg/dL):
<200 Desirable
200-239 Borderline high
>=240 High HDL 03/02/2025 10:35:31 54 >39 (mg/dL ) Final HDL Cholesterol Reference Ra nges (mg/dL):
>=60 High (Desirable)
<50 Low (Undesirable) For Females
<40 Low (Undesirable) For Males NON-HDL CHOLESTEROL 03/02/2025 10:35:31 95 <=159 (mg/dL) Final Non-HDL Cholesterol Referenc e Range (mg/dL):
<100 Target level for high risk ASCVD patient
<130 Optimal for general population
130-159 Near optimal for general population
160-189 Borderline High
190-219 High
>=220 Very High LDL, (calculated) 03/02/2025 10:35:31 71 <= 129 (mg/dL) Final LDL Cholesterol Reference Ra nges (mg/dL):
<70 Target level for high risk ASCVD patient
<100 Optimal for general population
100-129 Near optimal for general population
130-159 Borderline high
160-189 High
>=190 Very high
Patient has high LDL cholesterol. Consider screening for Familial Hypercholesterolemia. Performing Location [facility] - [address] [facility] [address]
--- OUTSIDE RECORDS SUMMARY | 2025-03-17 11:09 | External Medical Summary ---
Author Name Unknown Address Unknown Organization [id number]:[facility] [place] [address] [facility] [place] [facility] [address] Laboratory Report Ordering Provider Test Date Status MIKE PIKE 03/02/2025 10:35:31 Final Observation Date Value Abnormality Reference (Units ) Status T3, Free 03/02/2025 10:35:31 2.2 Below low normal 2.5 -4.3 (pg/mL) Final Performing Location [facility] [place] [address] [facility] [address]
--- OUTSIDE RECORDS SUMMARY | 2025-03-17 11:09 | External Medical Summary | Summary of Care ---
Author Name Unknown Organization [facility] Address [address] [place] [address] Phone [phone] Care Team Providers Care Shipping/Receiving Manager Name Role Phone Rosemary Leonard MD Primary Care Provider [phone] Reason for Visit * Reason Comments Skin Check Pt presents for rout ine skin check, reports a rough spot on ear and a lesion on cheek he would like evaluated today.Hx: [place] Encounter Details Date Type Department Care Team (Late st Contact Info) Description 12/16/2024 1:40 PM EST Office Visit Dermatology [address] [place] [address] Liberty Ramos PA-C [address] [place] [address] [place] [address] Actinic keratosis*; Skin exam, screening for cancer; [...] mRNA, LNP-s, No Pre serve, 2-Dose Series ([employer]) 09/05/2021 COVID-19, MRNA-LNP, PF, 30 M CG/0.3 [...] zinc. Product examples; Think sport, Think baby, [place], [place], [employer], [place] baby. "Baby" products can be used [...] either or our main Dermatology office in [place] at [phone]. If an emergency, please go to your nearest Emergency Department. documented in this encounter Progress Notes * Liberty Ramos PA-C - 12/16/2024 1:40 PM EST SUBJECTIVE: History of Present Illness: Mynor Thomas is a 73 year old male seen today for follow up of lesion/full skin exam. Previous office visit: 03/28/2022 Last attempted treatments include: cryo to AKs Rough spot on ear and cheek, no tx to date. Photoengraving Etcher Documentation Patient offered campaign analyst and declined. REVIEW OF SYSTEMS: SKIN: No [...] keratoses Reviewed, same day as visit, 0 [facility] Dermatology lab work(s)/pathology report(s) as well as [...] Ramos PA-C 12/16/2024 1:24 PM Dermatology [address] [place] [address] documented in this encounter Nursing Notes * [...] Description 01/25/2026 3:00 PM EST Office Visit Dermatology, [address] [place] [address] Liberty Ramos PA-C [address] [place] [address] [place] [address] Scheduled Procedures Name Priority Associated Diagnoses Date/Ti [...] interpreted or resulted by a [facility] or [facility] contracted radiologist. Liberty Ramos PA-C RADIOLOGY ([facility] ) Final Result documented in this encounter Visit Diagnoses Diagnosis Actinic keratosis- Primary Skin exam, screening for cancer Screening for malignant neoplasm of the skin Sebaceous hyperplasia of face Other specified disease of sebaceous glands Seborrheic keratosis Other seborrheic keratosis documented in this encounter Care Teams Shipping/Receiving Manager Relationship Specialty Start Date End Date Rosemary Leonard MD [address] [place] [address] [place] [address] PCP - General Internal Medicine 10/06/14 documented as of this encounter
--- OUTSIDE RECORDS SUMMARY | 2025-03-17 11:09 | External Medical Summary | Summary of Care ---
Author Name Unknown Organization [facility] Address [address] [place] [address] Phone [phone] Care Team Providers Care Associate Spa Director Name Role Phone Rosemary Leonard MD Primary Care Provider [phone] Encounter Details Date Type Department Care Team (Latest Contact Info) Description 12/16/2024 1:47 PM EST - 12/16/2024 11:59 PM EST Hospital Encounter Radiology Film File [address], [place] [id number] Arrived Discharge Disposition: Home - Self Care Allergies Active Allergy Reactions Criticality Noted Date Comments Ciprofloxacin Hives 06/11/2001 blisters Furosemide Hives 06/11/2001 blisters documented as of this encounter (statuses as of 12/17/2024) Medications ZOCOR TABS 10 MG ORIndications:Mi xed dyslipidemia one tab by mouth daily at bedtime 90 2 06/16/20 02 Active ASPIRIN 81 MG PO TBEC daily Active MULTI-VITAMINS PO TABS daily Active clonazePAM (KLONOPIN) 0.5 MG Tablet 1 daily 06/04/20 16 Active HYDROcodone-acet aminophen 5-325 mg per tab 5-325 MG per [...] 4 12:14 PM EDT 06/29/20 24 Active Sennosides-Docus ate Sodium 8.6-50 MG Oral Tablet (Senna S) [...] 4 3:30 PM EST 11/12/20 24 Active Levothyroxine Sodium 75 MCG Oral Tablet (Levoxyl) take one tablet by mouth in the morning on empty stomach 90 Tablet 4 12:03 PM EDT 07/16/20 24 025 Discontinued documented as of this encounter (statuses as of 12/17/2024) Active Problems Problem Noted Date Diagnosed Date Hx of actinic keratosis 12/14/2020 Polyneuropathy 08/19/2018 Numbness and tingling in both hands 01/22/2017 Carpal tunnel syndrome 11/22/2005 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 BACKACHE NOS 03/17/2003 LUMBAGO Mixed dyslipidemia GENERALIZED ANXIETY DIS OBESITY, UNSPECIFIED Sleep apnea Other seborrheic keratosis Sensorineural hearing loss, bilateral Presbyacusis Deviated nasal septum documented as of this encounter (statuses as of 12/17/2024) Immunizations Name Administration Dates Next Due COVID-19 [...] [address] [place] [address] Liberty Ramos PA-C [address] [place] [address] [place] [address] Scheduled Procedures Name Priority Associated Diagnoses Date/Ti [...] interpreted or resulted by a [facility] radiologist. Liberty aRmos PA-C RADIOLOGY ([facility] ) Final Result documented in this encounter Care Teams Associate Spa Director Relationship Specialty Start Date End Date Rosemary Leonard MD [address] [place] [address] [place] [address] PCP - General Internal Medicine 10/06/14 documented as of this encounter
--- OUTSIDE RECORDS SUMMARY | 2025-03-17 11:09 | External Medical Summary ---
Author Name Unknown Address Unknown Organization K01:[facility] [place] [address] [facility] [address] Laboratory Report Ordering Provider Test Date Status MIKE PIKE 03/02/2025 10:35:31 Final Observation Date Value Abnormality Reference (Units ) Status BUN 03/02/2025 10:35:31 16 6-20 (mg/dL) Final Creatinine 03/02/2025 10:35:31 0.9 0.6-1.2 (mg/dL) Final Glomerular filtration rate/1.73 sq M.predicted [Volume Rate/Area] in Serum, Plasma or Blood by Creatinine-based formula (CKD-EPI) 03/02/2025 10:35:31 90 >=60 (mL/min) Final eGFR is calculated based on the CKD-EPI 2020 equation. Sodium 03/02/2025 10:35:31 142 135-146 (m mol/L) Final Potassium 03/02/2025 10:35:31 4.5 3.5-5.1 (m mol/L) Final Cl 03/02/2025 10:35:31 104 98-107 (mm ol/L) Final CO2 03/02/2025 10:35:31 26 22-32 (mmo l/L) Final Anion gap 03/02/2025 10:35:31 12 7-15 (mmol /L) Final Glucose 03/02/2025 10:35:31 96 70-120 (mg /dL) Final Albumin 03/02/2025 10:35:31 4.4 3.8-5.0 (g /dL) Final AST (Aspartate aminotransferase) 03/02/2025 10:35:31 23 10-50 (U/L) Final Alk Phos 03/02/2025 10:35:31 75 35-130 (U/ L) Final Bilirubin, Total 03/02/2025 10:35:31 0.6 <=1 .2 (mg/dL) Final Calcium 03/02/2025 10:35:31 9.7 8.4-10.2 ( mg/dL) Final Protein 03/02/2025 10:35:31 7.2 6.0-8.3 (g /dL) Final ALT (Alanine aminotransferase) 03/02/2025 10:35:31 24 10-50 (U/L) Final Performing Location [facility] [place] [address] [facility] [address]
--- OUTSIDE RECORDS SUMMARY | 2025-03-17 11:09 | External Medical Summary ---
Author Name Unknown Address Unknown Organization K01:[facility] - [address] [place] [address] Laboratory Report Ordering Provider Test Date Status MIKE PIKE 03/02/2025 10:35:31 Final Observation Date Value Abnormality Reference (Units ) Status PSA 03/02/2025 10:35:31 1.02 <4.10 (ng/ mL) Final Performing Location [facility] - [address] [place] [address]
--- OUTSIDE RECORDS SUMMARY | 2025-03-17 11:09 | External Medical Summary ---
Author Name Unknown Address Unknown Organization K01:[facility] [place] [address] [facility] [address] Laboratory Report Ordering Provider Test Date Status MIKE PIKE 03/02/2025 10:35:31 Final Observation Date Value Abnormality Reference (Units ) Status SYNC LEUKOCYTES IN BLOOD BY AUTOMATED COUNT 03/02/2025 10:35:31 7.88 4.00-10.80 (K/uL) Final Segs 03/02/2025 10:35:31 65.7 40.0-75.0 (%) Final Lymphs % 03/02/2025 10:35:31 23.0 18.0-42.0 (%) Final Monos 03/02/2025 10:35:31 9.3 1.0-11.0 (%) Final Eosinophils 03/02/2025 10:35:31 1.1 0.0-6.0 (%) Final Basos 03/02/2025 10:35:31 0.5 0.0-2.0 (%) Final Immature Granulocyte, Percent 03/02/2025 10:35:31 0.4 0.0-2.0 (%) Final Absolute Segs 03/02/2025 10:35:31 5.18 1.80-7.70 (K/uL) Final Lymphs, absolute 03/02/2025 10:35:31 1.81 1.00-4.80 (K/ul) Final Monos, Abs 03/02/2025 10:35:31 0.73 0.00-1.10 (K/uL) Final Eos, Abs 03/02/2025 10:35:31 0.09 0.00-0.70 (K/uL) Final Basos, Abs 03/02/2025 10:35:31 0.04 0.00-0.20 (K/uL) Final Immature Granulocytes, Number 03/02/2025 10:35:31 0.03 0.00-0.20 (K/uL) Final Performing Location [facility] [place] - [address] [facility] [address]
--- OUTSIDE RECORDS SUMMARY | 2025-03-17 11:09 | External Medical Summary | Summary of Care ---
Author Name Unknown Organization [facility] Address [address] [place] [address] Phone [phone] Care Team Providers Care Hardwood Flooring Specialist Name Role Phone Rosemary Leonard MD Primary Care Provider [phone] Encounter Details Date Type Department Care Team (Late st Contact Info) Description 12/14/2024 Population Health External Data Unspecified Department Allergies Active Allergy Reactions Criticality Noted Date Comments Ciprofloxacin Hives 06/11/2001 blisters Furosemide Hives 06/11/2001 blisters documented as of this encounter (statuses as of 12/14/2024) Medications ZOCOR TABS 10 MG ORIndications:Mix ed dyslipidemia one tab by mouth daily at bedtime 90 2 2 Active TRAMADOL HCL 50 MG PO TBDP 2 tabs three times daily as needed Active ASPIRIN 81 MG PO TBEC daily Active MULTI-VITAMINS PO TABS daily Active LAMICTAL 100 MG PO TABS 1 TABLET DAILY 5 Active clonazePAM (KLONOPIN) 0.5 MG Tablet 1 daily 6 Active HYDROcodone-aceta minophen 5-325 mg per tab 5-325 MG per tablet 1 three times daily as needed 6 Active gabapentin (NEURONTIN) 300 MG Capsule 2 cap three times daily 6 Active buPROPion (WELLBUTRIN) 100 MG Tablet Take [...] by mouth daily at noon 90 Tablet 04/25/2024 9:56 AM EDT 4 Active Metoprolol Succinate ER 25 MG Oral Tablet Extended Release 24 Hour (toPROL XL) take one-half tablet by mouth every night 45 Tablet 04/25/2024 9:56 AM EDT 4 Active Diclofenac Sodium 1 % External Gel (Voltaren) apply 2 grams to skin of knees four times a day 800 g 1 07/01/2024 12:14 PM EDT 4 Active Levothyroxine Sodium 75 MCG Oral Tablet (Levoxyl) take one tablet by mouth in the morning on empty stomach 90 Tablet 07/17/2024 12:03 PM EDT 4 Active Sennosides-Docusa te Sodium 8.6-50 MG Oral Tablet (Senna S) take 2 tablets by mouth in the morning and 2 tablets in the evening 360 Tablet 1 12/10/2024 3:18 PM EST 4 Active Metoprolol Succinate ER 25 MG Oral Tablet Extended Release 24 Hour (toPROL XL) take one-half tablet by mouth every night 45 Tablet 10/29/2024 11:34 AM EST 4 Active buPROPion HCl ER (SR) 100 MG Oral Tablet Extended Release 12 Hour (Wellbutrin SR) take one tablet by mouth twice a day 180 Tablet 11/03/2024 4:45 PM EST 4 Active lamoTRIgine 100 MG Oral Tablet (LaMICtal) take 1 tablet every night 90 Tablet 11/24/2024 2:35 PM EST 4 Active Finasteride 5 MG Oral Tablet (Proscar) take one tablet by mouth at noon 90 Tablet 4 Active Levothyroxine Sodium 75 MCG Oral Tablet (Levoxyl) take one tablet by mouth in the morning on empty stomach 90 Tablet 1 4 Active Sennosides-Docusa te Sodium 8.6-50 MG Oral Tablet (Senna S) take 2 tablets by mouth in the morning and 2 in the afternoon 360 Tablet 1 4 Active Simvastatin 10 MG Oral Tablet (Zocor) take one tablet by mouth at bedtime 90 Tablet 12/08/2024 11:14 AM EST 4 Active Gabapentin 300 MG Oral Capsule (Neurontin) take two capsules by mouth four times a day for numbness and pain of feet 720 Capsule 1 11/12/2024 3:30 PM EST 4 Active documented as of this encounter (statuses as of 12/14/2024) Active Problems Problem Noted Date Diagnosed Date Hx of actinic keratosis 12/14/2020 Polyneuropathy 08/19/2018 Numbness and tingling in both hands 01/22/2017 Carpal tunnel syndrome 11/22/2005 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 BACKACHE NOS 03/17/2003 LUMBAGO Mixed dyslipidemia GENERALIZED ANXIETY DIS OBESITY, UNSPECIFIED Sleep apnea Other seborrheic keratosis Sensorineural hearing loss, bilateral Presbyacusis Deviated nasal septum documented as of this encounter (statuses as of 12/14/2024) Immunizations Name Administration Dates Next Due COVID-19 mRNA, LNP-s, No Pre serve, 2-Dose Series ([employer]) 09/05/2021 COVID-19, MRNA-LNP, PF, 30 M CG/0.3 mL, 12 YRS AND ABOVE, IM ([facility]) 09/22/2024 Season Influenza, Quad, PF, Adjuvanted, 65+ [...] 12/16/2024 1:40 PM EST Office Visit Dermatology [address] [place] [address] Liberty Ramos PA-C [address] [place] [address] [place] [address] Scheduled Procedures Name Priority Associated Diagnoses Date/Ti [...] filedocumented as of this encounter Care Teams Hardwood Flooring Specialist Relationship Specialty Start Date End Date Rosemary Leonard MD [address] [place] [address] [place] [id number] PCP - General Internal Medicine 10/06/14 documented as of this encounter
--- NOTE | 2025-03-17 11:43 | History & Physical Report ---
Date of Service March 17, 2025 Assessment & Plan (1) Benign localized prostatic hyperplasia with lower urinary tract symptoms (LUTS): (2) Hyperlipidemia: (3) High blood pressure: (4) Sleep apnea: (5) Bladder mass: (6) Depression: (7) Ambulatory dysfunction: Plan The patient is a 74-year-old male who presented to the ED on with ambulatory dysfunction s/p bilateral knee steroid injections 03/16/2025 Osteoarthritis Ambulatory dysfunction Continue home pain control with Percocet, add lidocaine PT/OT, case management referral, consult Ortho S/p bilateral knee steroid injections 03/16/2025 with chronic OA No active S/S of septic arthritis Hx DORETHA: Continue CPAP at bedtime Hx hypothyroidism: Continue levothyroxine Hx BPH: Continue finasteride Hx anxiety: Continue Wellbutrin/Lamictal Total of 60 minutes was spent on chart review/reviewing diagnostic data/discussion with consultants/facilitating plan of care Full code DVT prophylaxis: Lovenox History of Present Illness Chief Complaint: Bilateral lower extremity weakness Primary Care Provider: Rosemary Leonard MD The patient is a 74-year-old male with a past medical history of anxiety, BPH, obesity, sleep apnea, hypothyroidism, HTN, chronic pain, thoracic neurostimulator, who presents to the ED on 03/17/2025 with complaints of bilateral lower extremity weakness and ambulatory dysfunction. Patient reports feeling he was unable to stand up this morning. He slid to his knees and remained on his knees for about 45 minutes unable to get up. Patient reports chronic osteoarthritis and following with orthopedics. He received bilateral knee injections yesterday 03/16/2025. He reports being unable to bear weight due to weakness. The patient denies any tenderness/redness at injection sites. Denies any fever/chills/nausea/vomiting/diarrhea/abdominal pain. On arrival to the ED, labs are fairly unremarkable. Urinalysis negative Chest x-ray negative Bilateral knee x-rays with chronic osteoarthritis changes The patient will be admitted for ambulatory dysfunction and further recommendations from PT/OT Allergies Allergy/AdvReac Type Severity Reaction Status Date / Time furosemide Allergy Intermediate RASH Verified 03/08/21 10:52 Quinolones Allergy Intermediate RASH Verified 03/08/21 10:52 amoxicillin AdvReac Intermediate RASH Verified 03/08/21 10:52 clavulanic acid AdvReac Intermediate RASH Verified 03/08/21 10:52 Home Medications Medication Instructions Recorded Confirmed Type acetaminophen 500 mg tablet 1,000 mg PO TID 05/05/20 03/17/25 History (Tylenol Extra Strength) aspirin 81 mg tablet,delayed 81 mg PO .MON,WED,Saturday05/05/20 03/17/25 History release bupropion HCl 100 mg tablet,12 hr 100 mg PO BID 05/05/20 03/17/25 History sustained-release cholecalciferol (vitamin D3) 25 75 mcg PO PM 05/05/20 03/17/25 History mcg (1,000 unit) capsule (Vitamin D3) gabapentin 300 mg capsule 600 mg PO QID 05/05/20 03/17/25 History hydrocodone 5 mg-acetaminophen 325 0.5 tab PO TID PRN Pain 05/05/20 03/17/25 History mg tablet lamotrigine 100 mg tablet 100 mg PO HS 05/05/20 03/17/25 History multivitamin 1 tab PO QAM 05/05/20 03/17/25 History pyridoxine (vitamin B6) 100 mg 100 mg PO BID 05/05/20 03/17/25 History tablet (Vitamin B-6) sennosides 8.6 mg-docusate sodium 2 tab-cap PO BID 05/05/20 03/17/25 History 50 mg tablet (Senna-S) simvastatin 10 mg tablet 10 mg PO HS 05/05/20 03/17/25 History valbenazine 80 mg capsule 80 mg PO HS 05/05/20 03/17/25 History (Ingrezza) diclofenac sodium 1 % topical gel 2 g topical QID 03/17/25 03/17/25 History finasteride 5 mg tablet 5 mg PO .DAILY@NOON 03/17/25 03/17/25 History levothyroxine 75 mcg tablet 75 mcg PO DAILY 03/17/25 03/17/25 History melatonin 3 mg tablet 3 mg PO HS 03/17/25 03/17/25 History polyethylene glycol 3350 17 17 g PO DAILY PRN Constipation 03/17/25 03/17/25 History gram/dose oral powder (Miralax) Past Med/Surg History Problem List (Updated 03/17/25 @ 11:46 by LEXY Funez) Ambulatory dysfunction Benign localized prostatic hyperplasia with lower urinary tract symptoms (LUTS) Encounter for pre-operative examination Gross hematuria Hyperlipidemia High blood pressure Medical History Anxiety Bladder mass Degenerative disc disease Depression Hearing deficit High blood pressure History of skin cancer Hyperlipidemia Neuropathy Osteoarthritis Sleep apnea Spinal stenosis Surgical History H/O: vasectomy History of carpal tunnel release of both wrists History of colonoscopy History of elbow surgery History of lumbar fusion Hx of cholecystectomy Hx of tonsillectomy Family History Father Heart disease Sister Breast cancer Mother PONV (postoperative nausea and vomiting) Grandfather (Maternal) Diabetes Social History Smoking Status: Never smoker Second Hand Exposure: Yes ( A CHILD); Do You Dip or Chew Tobacco: No; Hx Alcohol Use: No Hx Substance Use: No Preferred Language: Palauan Communication Ability: Effective Team Leader Surgery Required: No Beliefs That Will Affect Care: None marital status: Current Living Situation: Spouse current occupational status: retired Feels Safe at Home: Yes Diet: regular Assistive Devices: Cane, CPAP and Hearing Aid - Bilateral Review of Systems Review of Systems: All systems reviewed & are unremarkable except as noted in HPI & below Physical Exam Constitutional: WD/WN, vitals as above Eyes: PERRL, conjunctivae normal, anicteric sclerae ENMT: external ear and nose normal, oropharynx normal Neck: trachea midline, no thyromegaly Respiratory: normal respiratory effort, lungs clear to auscultation Cardiovascular: RRR, no murmur, no edema Gastrointestinal (Abdomen): normal bowel sounds, soft, nontender, no hepatosplenomegaly Musculoskeletal: no cyanosis or clubbing, extremities motor strength 5/5 (Bilateral lower extremity weakness, abrasions on knees from fall) Skin: no rashes, warm and dry Neurologic: PERRL, EOMI, accommodation nl, no face palsy, no dysarthria Lymphatic: no cervical or axillary lymphadenopathy Results & Data Results & Data Vital Signs (Past 12 Hours) Vital Signs Temp Pulse Resp BP Pulse Ox O2 Del Method 03/17/25 10:30 73 26 H 155/80 H 99 Room Air 03/17/25 10:00 75 24 143/78 H 99 Room Air 03/17/25 09:30 67 22 156/91 H 99 Room Air 03/17/25 08:31 75 24 141/79 H 98 Room Air 03/17/25 08:26 74 03/17/25 08:02 97 Room Air 03/17/25 07:52 36.5 C 82 22 150/88 H 97 Room Air Diagnostic Findings Laboratory Results WBC 8.69 K/ul (4.8-10.8) 03/17/25 08:22 RBC 4.41 M/uL (4.70-6.10) L 03/17/25 08:22 Hgb 14.1 g/dl (14.0-18.0) 03/17/25 08:22 Hct 41.4 % (42.0-52.0) L 03/17/25 08:22 MCV 93.9 fL (80.0-100.0) 03/17/25 08:22 MCH 32.0 pg (25.0-34.0) 03/17/25 08:22 MCHC 34.1 g/dL (32.0-36.0) 03/17/25 08:22 RDW Std Deviation 45.8 fL (36.4-46.3) 03/17/25 08:22 RDW Coeff of [place] 13.3 % (11.5-14.5) 03/17/25 08:22 Plt Count 174 K/uL (130-400) 03/17/25 08:22 MPV 10.1 fL (9.4-12.4) 03/17/25 08:22 Immature Gran % (Auto) 0.6 % 03/17/25 08:22 Neut % (Auto) 81.4 % 03/17/25 08:22 Lymph % (Auto) 8.6 % 03/17/25 08:22 [place] % (Auto) 9.3 % 03/17/25 08:22 Eos % (Auto) 0.0 % 03/17/25 08:22 Baso % (Auto) 0.1 % 03/17/25 08:22 Neut # (Auto) 7.07 K/uL (1.40-6.50) H 03/17/25 08:22 Lymph # (Auto) 0.75 K/uL (1.20-3.40) L 03/17/25 08:22 [place]orden # (Auto) 0.81 K/uL (0.11-0.59) H 03/17/25 08:22 Eos # (Auto) 0.00 K/uL (0.00-0.50) 03/17/25 08:22 Baso # (Auto) 0.01 K/uL (0.00-0.20) 03/17/25 08:22 Immature Gran # (Auto) 0.05 K/uL (0.01-0.20) 03/17/25 08:22 PT 11.1 Seconds (9.0-12.0) 03/17/25 08:22 INR 1.0 (0.9-1.1) 03/17/25 08:22 Sodium 139 mmol/L (136-145) 03/17/25 08:22 Potassium 4.2 mmol/L (3.5-5.1) 03/17/25 08:22 Chloride 107 mmol/L (98-107) 03/17/25 08:22 Carbon Dioxide 22 mmol/L (21-32) 03/17/25 08:22 Anion Gap 10 (3-11) 03/17/25 08:22 BUN 14 mg/dl (6-23) 03/17/25 08:22 Creatinine 0.91 mg/dl (0.6-1.4) 03/17/25 08:22 Est Cr Clr Drug Dosing 109.6 ml/min 03/17/25 08:22 eGFR 88.44 03/17/25 08:22 BUN/Creatinine Ratio 15.4 (10-20) 03/17/25 08:22 Glucose 126 mg/dl (70-99(Fasting)) H 03/17/25 08:22 Calcium 9.1 mg/dl (8.6-10.3) 03/17/25 08:22 Total Bilirubin 0.7 mg/dl (0.2-1.0) 03/17/25 08:22 AST 17 U/L (13-39) 03/17/25 08:22 ALT 12 U/L (7-52) 03/17/25 08:22 Alkaline Phosphatase 53 U/L (34-104) 03/17/25 08:22 Troponin I High Sens 2.5 pg/ml (0-20) 03/17/25 08:22 Total Protein 6.7 gm/dl (6.0-8.3) 03/17/25 08:22 Albumin 3.8 gm/dl (3.4-5.0) 03/17/25 08:22 Globulin 2.9 gm/dl (2.5-4.0) 03/17/25 08:22 Albumin/Globulin Ratio 1.3 (0.9-2) 03/17/25 08:22 Lipase 12 U/L (11-82) 03/17/25 08:22 Urine Color Yellow 03/17/25 07:57 Urine Appearance Clear (Clear) 03/17/25 07:57 Urine pH 7.0 (4.5-7.5) 03/17/25 07:57 Ur Specific [place] 1.018 (1.000-1.030) 03/17/25 07:57 Urine Protein Negative (Negative) 03/17/25 07:57 Urine Glucose (UA) Negative (Negative) 03/17/25 07:57 Urine Ketones Negative (Negative) 03/17/25 07:57 Urine Blood Negative (Negative) 03/17/25 07:57 Urine Nitrite Negative (Negative) 03/17/25 07:57 Urine Bilirubin Negative (Negative) 03/17/25 07:57 Urine Urobilinogen Negative (Negative) 03/17/25 07:57 Ur Leukocyte Esterase Negative (Negative) 03/17/25 07:57 Impressions Chest X-Ray 03/17/25 08:02 XR chest 1V portable CLINICAL HISTORY: weak COMPARISON STUDY: None FINDINGS: Lower thoracic spine neurostimulator lead is present. Heart size and pulmonary vasculature are normal. No effusion, consolidation, or pneumothorax. IMPRESSION: No acute findings. ACT 112: Negative or not required by law. Electronically signed by: Sunday Oreilly M.D. 03/17/2025 8:49 AM Knee X-Ray 03/17/25 08:06 XR knee LT 3V, XR knee RT 3V CLINICAL HISTORY: fall COMPARISON: None FINDINGS: There is severe medial compartment narrowing with osteophytosis at both knees consistent with osteoarthritis. There is a small metallic soft tissue foreign body in the medial superficial soft tissues of the left knee. No acute fracture or dislocation seen at either knee. IMPRESSION: 1. No fracture seen in either knee. 2. Otherwise as described. ACT 112: Negative or not required by law. Electronically signed by: Sunday Oreilly M.D. 03/17/2025 8:50 AM Code Status & VTE Plan VTE Prophylaxis Plan VTE Prophylaxis will be ordered: Yes Supervising Physician Co-Signing Physician Notes Attending addendum: The patient was seen and examined in the emergency room in presence of the He is a status post bilateral knee injection yesterday and ended up with a fall this morning while coming out of bed. He landed on his knees and could not get up. Denies any other symptoms except weakness of the legs. On examination Lying in bed without any acute distress. Hemodynamically stable with blood pressure on the upper side at 155/80 Chestclear to auscultate bilaterally HeartS1-S2, regular Abdomendistended, soft benign with normal bowel sound Extremities- bilateral swelling of the knees secondary to osteoarthritis, minimal redness anteriorly secondary to being on knees this morning. Movement of the knees bilaterally was not painful and Strength of the lower extremities was about 4 /5 bilaterally his admission labs, imaging studies and medications reviewed Has bilateral osteoarthritis of the knees status post injection Ambulatory dysfunction secondary to osteoarthritis and other significant comorbid conditions including obesity Agree with assessment and plan as outlined above by LEXY Arriaza and take the full responsible care in the hospital Total time taken in document all this was [address] Anton Bolivar
[2025-03-17] MEDS: HYDROCODONE/ACETAMOPHEN 5/325MG TAB PO ONE (13:09)
--- NOTE | 2025-03-17 14:27 | Orthopedic Consultation ---
Date of Service March 17, 2025 Assessment & Plan (1) Ambulatory dysfunction: (2) Degenerative arthritis of knee, bilateral: Patient is being admitted to the hospitalist service for ambulatory dysfunction. Agree with PT/OT tha. WBAT. He does use some knee braces at home occasionally, so his family could bring those tomorrow if he wants them. He has some erythema of both knees anteriorly but states this is from kneeling on them. I do not suspect any cellulitis around the injection sites but can continue to monitor. Will discuss with Dr Velasquez. History of Present Illness Reason for Consultation: . Requesting Physician: . Attending Physician: Divya Bolivar MD . Mynor is a 74 year old patient being admitted for ambulatory dysfunction. He has a history of chronic bilateral knee pain/arthritis and has received numerous injections. Yesterday he had what sounds like bilateral knee intraarticular s teroid injections with his orthopedic provider at [facility] in [place]. His knees were feeling okay after the injections but when he woke up today he sort of just slid out of bed as he was unable to get up. He was on his knees for awhile and states the redness anteriorly is from kneeling. They did call EMS for assistance getting him up and he was brought here for further evaluation as he was unable to ambulate. He continued to have difficulty with ambulation in the ER and has been admitted to the hospitalist service. He does regularly use a walker for ambulation. Denies past knee surgery. No increase in knee pain at this time. He has a history of chronic low back pain and neuropathy after previous spine surgery many years ago. He reports numbness chronically in both legs basically from the knees down to his feet. This morning he felt generalized weakness. Allergies Allergy/AdvReac Type Severity Reaction Status Date / Time furosemide Allergy Intermediate RASH Verified 03/08/21 10:52 Quinolones Allergy Intermediate RASH Verified 03/08/21 10:52 amoxicillin AdvReac Intermediate RASH Verified 03/08/21 10:52 clavulanic acid AdvReac Intermediate RASH Verified 03/08/21 10:52 Home Medications Medication Instructions Recorded Confirmed Type acetaminophen 500 mg tablet 1,000 mg PO TID 05/05/20 03/17/25 History (Tylenol Extra Strength) aspirin 81 mg tablet,delayed 81 mg PO .MON,SAT,Saturday05/05/20 03/17/25 History release bupropion HCl 100 mg tablet,12 hr 100 mg PO BID 05/05/20 03/17/25 History sustained-release cholecalciferol (vitamin D3) 25 75 mcg PO PM 05/05/20 03/17/25 History mcg (1,000 unit) capsule (Vitamin D3) gabapentin 300 mg capsule 600 mg PO QID 05/05/20 03/17/25 History hydrocodone 5 mg-acetaminophen 325 0.5 tab PO TID PRN Pain 05/05/20 03/17/25 History mg tablet lamotrigine 100 mg tablet 100 mg PO HS 05/05/20 03/17/25 History multivitamin 1 tab PO QAM 05/05/20 03/17/25 History pyridoxine (vitamin B6) 100 mg 100 mg PO BID 05/05/20 03/17/25 History tablet (Vitamin B-6) sennosides 8.6 mg-docusate sodium 2 tab-cap PO BID 05/05/20 03/17/25 History 50 mg tablet (Senna-S) simvastatin 10 mg tablet 10 mg PO HS 05/05/20 03/17/25 History valbenazine 80 mg capsule 80 mg PO HS 05/05/20 03/17/25 History (Ingrezza) diclofenac sodium 1 % topical gel 2 g topical QID 03/17/25 03/17/25 History finasteride 5 mg tablet 5 mg PO .DAILY@NOON 03/17/25 03/17/25 History levothyroxine 75 mcg tablet 75 mcg PO DAILY 03/17/25 03/17/25 History melatonin 3 mg tablet 3 mg PO HS 03/17/25 03/17/25 History polyethylene glycol 3350 17 17 g PO DAILY PRN Constipation 03/17/25 03/17/25 History gram/dose oral powder (Miralax) Past Med/Surg History Problem List (Updated 03/17/25 @ 14:37 by Aime Nicolas PA-C) Degenerative arthritis of knee, bilateral Ambulatory dysfunction (Acute) Benign localized prostatic hyperplasia with lower urinary tract symptoms (LUTS) Encounter for pre-operative examination Gross hematuria Hyperlipidemia High blood pressure Medical History Neuropathy Hands and feet Spinal stenosis Degenerative disc disease Osteoarthritis History of skin cancer REMOVED Hearing deficit [place] Depression Anxiety Sleep apnea CPAP Bladder mass Surgical History History of elbow surgery LEFT History of carpal tunnel release of both wrists History of lumbar fusion History of colonoscopy H/O: vasectomy Hx of cholecystectomy Hx of tonsillectomy Family History Father Heart disease Sister Breast cancer Mother PONV (postoperative nausea and vomiting) Grandfather (Maternal) Diabetes Social History Smoking Status: Never smoker Second Hand Exposure: Yes ( A CHILD); Do You Dip or Chew Tobacco: No; Hx Alcohol Use: No Hx Substance Use: No Preferred Language: [place] Communication Ability: Effective Coach Cleaner Required: No Beliefs That Will Affect Care: None marital status: Current Living Situation: Spouse current occupational status: retired Feels Safe at Home: Yes Diet: regular Assistive Devices: Hearing Aid - Bilateral and Walker Review of Systems All systems reviewed & are unremarkable except as noted in HPI & below. Physical Exam .alert and oriented. NAD Bilateral lower extremity: Able to do a good straight leg raise without pain or difficulty. No tenderness to palpation around his knees. He does have some stiffness and limitation with range of motion of his knees. No hip/groin pain with hip motion. +trace knee effusions and erythema anteriorly bilateral knees. Small area of ecchymosis of anterior-medially of the right knee. Able to dorsiflex and plantarflex appropriately. No weakness with DF/PF, inversion/eversion. Reports diminished sensation bilateral feet, which is chronic. Results & Data Results & Data Laboratory Results . Diagnostic Findings .xrays of bilateral knees shows advanced arthritic changes, no fractures. PG Care Time/CCT Total # of Minutes Spent Total Time Spent with Patient: Total time spent is greater than 50% in coordination of care (as documented) at patient's floor/unit and/or counseling patient: Coding Level of Care Code 87010 IN/OBS CONSULT LVL 3,45M Diagnoses Ambulatory dysfunction R26.2 Degenerative arthritis of knee, bilateral M17.0
[2025-03-17] MEDS: GABAPENTIN 600 MG TAB PO SCH (15:55)
[2025-03-17] MEDS: ENOXAPARIN INJ 40 MG/0.4 ML SYR SQ SCH (15:55)
[2025-03-17] MEDS: ACETAMINOPHEN 325 MG TAB PO PRN (18:20)
[2025-03-17] MEDS: SIMVASTATIN 10 MG TAB PO SCH (21:04)
[2025-03-17] MEDS: PYRIDOXINE HCL 50 MG TAB PO SCH (21:04)
[2025-03-17] MEDS: lamoTRIgine 100 MG TAB PO SCH (21:04)
[2025-03-17] MEDS: ASPIRIN 81 MG ECTAB PO SCH (21:04)
[2025-03-17] MEDS: VALBENAZINE TOSYLATE 80 MG PO SCH (21:05)
[2025-03-17] MEDS: buPROPion SR 100 MG TABCR PO SCH (21:05)
[2025-03-17] MEDS: DOCUSATE SODIUM/SENNA 50/8.6MG TAB PO SCH (21:05)
[2025-03-17] MEDS: clonazePAM 0.5 MG TAB PO SCH (21:05)
[2025-03-17] MEDS: HYDROCODONE/ACETAMOPHEN 5/325MG TAB PO PRN (21:15)
[2025-03-18] MEDS: LEVOTHYROXINE SODIUM 75 MCG TABLET PO SCH (05:45)
[2025-03-18] MEDS: FINASTERIDE 5 MG TAB PO SCH (08:15)
[2025-03-18] MEDS: CHOLECALCIFEROL 25 MCG (1000 UNITS) TAB PO SCH (08:15)
[2025-03-18 10:07] LABS: Basophils # (auto) 0.03 K/uL (0.00-0.20); Basophils % (auto) 0.4 %; Eosinophils # (auto) 0.03 K/uL (0.00-0.50); Eosinophils % (auto) 0.4 %; Hematocrit (blood only) 40.2 % (42.0-52.0); Hemoglobin 13.7 g/dl (14.0-18.0); Immature Granulocytes # (auto) 0.03 K/uL (0.01-0.20); Immature Granulocytes % (auto) 0.4 %; Lymphocytes # (auto) 1.89 K/uL (1.20-3.40); Lymphocytes % (auto) 24.6 %; Mean Corpuscular Hgb Conc 34.1 g/dL (32.0-36.0); Mean Corpuscular Volume 93.9 fL (80.0-100.0); Monocytes # (auto) 0.87 K/uL (0.11-0.59); Monocytes % (auto) 11.3 %; Neutrophils # (auto) 4.84 K/uL (1.40-6.50); Neutrophils % (auto) 62.9 %; Platelet Count 151 K/uL (130-400); RDW Coefficient of Variation 13.7 % (11.5-14.5); RDW Standard Deviation 46.7 fL (36.4-46.3); Red Blood Count 4.28 M/uL (4.70-6.10); White Blood Count 7.69 K/ul (4.8-10.8)
[2025-03-18 10:32] LABS: Calcium 8.6 mg/dl (8.6-10.3); Creatinine Clr Calc Pharmacy 131.2 ml/min; Potassium 3.5 mmol/L (3.5-5.1)
--- NOTE | 2025-03-18 11:20 | Orthopedic Progress Note ---
Date of Service March 18, 2025 Assessment & Plan (1) Degenerative arthritis of knee, bilateral: He was seen and examined by Dr. Velasquez today. No signs of infection. Recommend therapy as ordered. He can weightbear as tolerated. Subjective . 74 year old patient admitted with ambulatory dysfunction, advanced knee DJD bilaterally. Not having much pain. He is still awaiting therapy. Review of Systems All systems reviewed & are unremarkable except as noted in HPI & below. Physical Exam .alert, NAD Bilateral lower extremities: erythema anteriorly improved. Still some ecchymosis likely from the injections. Trace knee effusions. Able to do straight leg raise. Stiffness with motion of his hips and knees. Results & Data Results & Data Laboratory Results . Diagnostic Findings . PG Care Time/CCT Total # of Minutes Spent Total Time Spent with Patient: Total time spent is greater than 50% in coordination of care (as documented) at patient's floor/unit and/or counseling patient: Coding Level of Care Code 75313 SUB INP/OBS CARE 2/35MIN Diagnoses Degenerative arthritis of knee, bilateral M17.0
--- NOTE | 2025-03-18 18:01 | Hospitalist Progress Note ---
Date of Service March 18, 2025 Assessment & Plan (1) Benign localized prostatic hyperplasia with lower urinary tract symptoms (LUTS): (2) Hyperlipidemia: (3) High blood pressure: (4) Sleep apnea: (5) Bladder mass: (6) Depression: (7) Ambulatory dysfunction: Plan The patient is a 74-year-old male who presented to the ED on with ambulatory dysfunction s/p bilateral knee steroid injections 03/16/2025 Osteoarthritis Ambulatory dysfunction Continue home pain control with Percocet, add lidocaine PT/OT, appreciate ortho input S/p bilateral knee steroid injections 03/16/2025 with chronic OA No active S/S of septic arthritis Hx DORETHA: Continue CPAP at bedtime Hx hypothyroidism: Continue levothyroxine Hx BPH: Continue finasteride Hx anxiety: Continue Wellbutrin/Lamictal I spent a total of 45 minutes in direct patient care, including [id number] time with the patient and/or family, reviewing medical records, ordering and reviewing diagnostic tests, and coordinating care with other healthcare providers. This time includes: history taking, physical examination, medical decision making, counseling, ECG interpretation, imaging interpretation, lab interpretation, orders, and education, excluding time spent in the performance of separately billed services. Admission and Anticipated Discharge Date Admission Date: March 17, 2025 Subjective Patient seen and examined at bedside. Patient doing okay today. Looking forward to getting physical therapy. Review of Systems Review of Systems: CONSTITUTIONAL: Patient denies fevers, chills, sweats and weight changes. EYES: Patient denies any visual symptoms. EARS, NOSE, AND THROAT: No difficulties with hearing. No symptoms of rhinitis or sore throat. CARDIOVASCULAR: Patient denies chest pains, palpitations, orthopnea and paroxysmal nocturnal dyspnea. RESPIRATORY: No dyspnea on exertion, no wheezing or cough. GI: No nausea, vomiting, diarrhea, constipation, abdominal pain, hematochezia or melena. : No urinary hesitancy or dribbling. No nocturia or urinary frequency. No abnormal urethral discharge. MUSCULOSKELETAL: weakness NEUROLOGIC: No chronic headaches, no seizures. Patient denies numbness, tingling or weakness. PSYCHIATRIC: Patient denies problems with mood disturbance. No problems with anxiety. ENDOCRINE: No excessive urination or excessive thirst. DERMATOLOGIC: Patient denies any rashes or skin changes. Physical Exam Physical Exam: Gen: A&O 3 NAD HEENT: NCAT, EOMI, not icteric. External ears normal. No rhinorrhea. Moist mucous membranes. Neck: Supple, full range of motion, no observable masses, No meningeal sign. Lungs: No Respiratory distress. CV: RRR, no edema. Abdomen: Soft, nondistended, No rebound tenderness. MSK: No joint swelling, no redness. no tenderness to palpation on knees bilaterally Skin: No rashes, petechiae, lesions. Normal color per patient. Neuro: Normal Gait, Grossly intact. Psych: Appropriate for situation. Results & Data Results & Data Vital Signs (Past 12 Hours) Vital Signs Temp Pulse Resp BP Pulse Ox O2 Del Method 03/18/25 13:45 36.5 C 57 L 16 127/77 95 Room Air 03/18/25 07:56 36.4 C L 58 L 16 136/84 96 Room Air Laboratory Results -personally reviewed, Hgb stable, creatinine stable Medications Administered Acetaminophen (Acetaminophen 325 Mg Tab) 650 mg PO Q4H PRN PRN Reason: mild pain/fever Stop: 04/16/25 14:00 Last Admin: 03/17/25 22:43 Dose: 650 mg Documented By: Admin: 03/17/25 18:20 Dose: 650 mg Documented By: RAJAN Hydrocodone Bitart/Acetaminophen (Hydrocodone/Acetamophen 5/325mg Tab) 0.5 tab PO TID PRN PRN Reason: MODERATE/SEVERE PAIN Stop: 03/31/25 14:00 Last Admin: 03/18/25 08:11 Dose: 0.5 tab Documented By: Admin: 03/17/25 21:15 Dose: 0.5 tab Documented By: CARLOS Aspirin (Aspirin 81 Mg Ectab) 81 mg PO QPM [facility] Stop: 04/16/25 20:59 Last Admin: 03/17/25 21:04 Dose: 81 mg Documented By: CARLOS Bupropion HCl (Bupropion Sr 100 Mg Tabcr) 100 mg PO BID [facility] Stop: 04/16/25 20:59 Last Admin: 03/18/25 08:15 Dose: 100 mg Documented By: Admin: 03/17/25 21:05 Dose: 100 mg Documented By: CARLOS Clonazepam (Clonazepam 0.5 Mg Tab) 0.25 mg PO HS [facility] Stop: 04/16/25 20:59 Last Admin: 03/17/25 21:05 Dose: 0.25 mg Documented By: CARLOS Enoxaparin Sodium (Enoxaparin Inj 40 Mg/0.4 Ml Syr) 40 mg SQ Q12 [facility] Stop: 04/16/25 14:29 Last Admin: 03/18/25 08:15 Dose: 40 mg Documented By: Admin: 03/17/25 21:06 Dose: 40 mg Documented By: Admin: 03/17/25 15:55 Dose: 40 mg Documented By: AMIE Finasteride (Finasteride 5 Mg Tab) 5 mg PO DAILY [facility] Stop: 04/17/25 08:59 Last Admin: 03/18/25 08:15 Dose: 5 mg Documented By: ROBERTA Gabapentin (Gabapentin 600 Mg Tab) 600 mg PO QID [facility] Stop: 04/16/25 14:29 Last Admin: 03/18/25 17:38 Dose: 600 mg Documented By: Admin: 03/18/25 13:01 Dose: 600 mg Documented By: Admin: 03/18/25 08:14 Dose: 600 mg Documented By: Admin: 03/17/25 21:17 Dose: Not Given Documented By: Admin: 03/17/25 21:05 Dose: 600 mg Documented By: Admin: 03/17/25 15:55 Dose: 600 mg Documented By: AMIE Lamotrigine (Lamotrigine 100 Mg Tab) 100 mg PO [facility]; Protocol Stop: 04/16/25 20:59 Last Admin: 03/17/25 21:04 Dose: 100 mg Documented By: CARLOS Levothyroxine Sodium (Levothyroxine Sodium 75 Mcg Tablet) 75 mcg PO DAILYBB [facility] Stop: 04/17/25 06:29 Last Admin: 03/18/25 05:45 Dose: 75 mcg Documented By: CARLOS Pyridoxine HCl (Pyridoxine Hcl 50 Mg Tab) 100 mg PO BID [facility] Stop: 04/16/25 20:59 Last Admin: 03/18/25 08:15 Dose: 100 mg Documented By: Admin: 03/17/25 21:04 Dose: 100 mg Documented By: CARLOS Senna/Docusate Sodium (Docusate Sodium/Senna 50/8.6mg Tab) 2 tab PO [facility] Stop: 04/16/25 20:59 Last Admin: 03/17/25 21:05 Dose: 2 tab Documented By: CARLSO Simvastatin (Simvastatin 10 Mg Tab) 10 mg PO HS [facility] Stop: 04/16/25 20:59 Last Admin: 03/17/25 21:04 Dose: 10 mg Documented By: CARLOS Valbenazine (Valbenazine Tosylate 80 Mg Cap) 1 each PO HS [facility] Stop: 04/16/25 20:59 Last Admin: 03/17/25 21:05 Dose: 1 each Documented By: CARLOS Vitamin D (Cholecalciferol 25 Mcg (1000 Units) Tab) 75 mcg PO DAILY [facility] Stop: 04/17/25 08:59 Last Admin: 03/18/25 08:15 Dose: 75 mcg Documented By: ROBERTA
--- NOTE | 2025-03-18 18:02 | XRay Report ---
EXAMINATION: X-ray pelvis 1-2 view routine CLINICAL HISTORY: Limited mobility PRIORS: None TECHNIQUE: 2 views frontal view pelvis FINDINGS: Large body habitus and large amount of formed stool and gas diminished image quality. A medical stimulator type device noted projecting superior to the right hip. Postsurgical change of the lumbosacral spine also noted. Allowing for these limitations, mild joint space narrowing of the hips noted. No displaced fracture or dislocation. Obturator rings intact. Pubic symphysis not widened. No unusual calcifications. IMPRESSION: Mild degenerative change of the hips. Electronically signed by Elizabeth Mccarty 03-18-2025 6:02 PM
[2025-03-19 08:10] LABS: Hematocrit (blood only) 41.6 % (42.0-52.0); Hemoglobin 14.3 g/dl (14.0-18.0); Mean Corpuscular Hemoglobin 32.7 pg (25.0-34.0); Mean Corpuscular Hgb Conc 34.4 g/dL (32.0-36.0); Mean Corpuscular Volume 95.2 fL (80.0-100.0); Mean Platelet Volume 10.1 fL (9.4-12.4); Platelet Count 142 K/uL (130-400); RDW Coefficient of Variation 13.6 % (11.5-14.5); RDW Standard Deviation 47.9 fL (36.4-46.3); Red Blood Count 4.37 M/uL (4.70-6.10); White Blood Count 8.41 K/ul (4.8-10.8)
[2025-03-19 08:36] LABS: BUN Creatinine Ratio 18.5 (10-20); Calcium 8.8 mg/dl (8.6-10.3); Creatinine Clr Calc Pharmacy 123.1 ml/min; Potassium 3.9 mmol/L (3.5-5.1)
--- NOTE | 2025-03-19 17:02 | Hospitalist Progress Note ---
Date of Service March 19, 2025 Assessment & Plan (1) Benign localized prostatic hyperplasia with lower urinary tract symptoms (LUTS): (2) Hyperlipidemia: (3) High blood pressure: (4) Sleep apnea: (5) Bladder mass: (6) Depression: (7) Ambulatory dysfunction: Plan The patient is a 74-year-old male who presented to the ED on with ambulatory dysfunction s/p bilateral knee steroid injections 03/16/2025 Osteoarthritis Ambulatory dysfunction Continue home pain control with Percocet, add lidocaine PT/OT, appreciate ortho input S/p bilateral knee steroid injections 03/16/2025 with chronic OA No active S/S of septic arthritis -awaiting rehab placement Hx DORETHA: Continue CPAP at bedtime Hx hypothyroidism: Continue levothyroxine Hx BPH: Continue finasteride Hx anxiety: Continue Wellbutrin/Lamictal I spent a total of 40 minutes in direct patient care, including [id number] time with the patient and/or family, reviewing medical records, ordering and reviewing diagnostic tests, and coordinating care with other healthcare providers. This time includes: history taking, physical examination, medical decision making, counseling, ECG interpretation, imaging interpretation, lab interpretation, orders, and education, excluding time spent in the performance of separately billed services. Admission and Anticipated Discharge Date Admission Date: March 17, 2025 Subjective Patient seen examined at bedside. Discussed case with on phone as well. Along with son in room. Patient doing well today looking forward to going to rehab. This patient is states that he would like to go to [facility] in [place]. Review of Systems Review of Systems: CONSTITUTIONAL: Patient denies fevers, chills, sweats and weight changes. EYES: Patient denies any visual symptoms. EARS, NOSE, AND THROAT: No difficulties with hearing. No symptoms of rhinitis or sore throat. CARDIOVASCULAR: Patient denies chest pains, palpitations, orthopnea and paroxysmal nocturnal dyspnea. RESPIRATORY: No dyspnea on exertion, no wheezing or cough. GI: No nausea, vomiting, diarrhea, constipation, abdominal pain, hematochezia or melena. : No urinary hesitancy or dribbling. No nocturia or urinary frequency. No abnormal urethral discharge. MUSCULOSKELETAL: weakness NEUROLOGIC: No chronic headaches, no seizures. Patient denies numbness, tingling or weakness. PSYCHIATRIC: Patient denies problems with mood disturbance. No problems with anxiety. ENDOCRINE: No excessive urination or excessive thirst. DERMATOLOGIC: Patient denies any rashes or skin changes. Physical Exam Physical Exam: Gen: A&O 3 NAD HEENT: NCAT, EOMI, not icteric. External ears normal. No rhinorrhea. Moist mucous membranes. Neck: Supple, full range of motion, no observable masses, No meningeal sign. Lungs: No Respiratory distress. CV: RRR, no edema. Abdomen: Soft, nondistended, No rebound tenderness. MSK: No joint swelling, no redness. no tenderness to palpation on knees bilaterally Skin: No rashes, petechiae, lesions. Normal color per patient. Neuro: Normal Gait, Grossly intact. Psych: Appropriate for situation. Results & Data Results & Data Vital Signs (Past 12 Hours) Vital Signs Temp Pulse Resp BP BP Pulse Ox O2 Del Method 03/19/25 15:24 36.6 C 66 18 127/78 96 Room Air 03/19/25 06:55 36.4 C L 55 L 18 130/75 96 Room Air Laboratory Results -personally reviewed, creatinine stable, Hgb stable haha Medications Administered Acetaminophen (Acetaminophen 325 Mg Tab) 650 mg PO Q4H PRN PRN Reason: mild pain/fever Stop: 04/16/25 14:00 Last Admin: 03/19/25 05:18 Dose: 650 mg Documented By: Admin: 03/17/25 22:43 Dose: 650 mg Documented By: Admin: 03/17/25 18:20 Dose: 650 mg Documented By: RAJAN Hydrocodone Bitart/Acetaminophen (Hydrocodone/Acetamophen 5/325mg Tab) 0.5 tab PO TID PRN PRN Reason: MODERATE/SEVERE PAIN Stop: 03/31/25 14:00 Last Admin: 03/19/25 15:10 Dose: 0.5 tab Documented By: Admin: 03/18/25 08:11 Dose: 0.5 tab Documented By: Admin: 03/17/25 21:15 Dose: 0.5 tab Documented By: CARLOS Aspirin (Aspirin 81 Mg Ectab) 81 mg PO QPM [facility] Stop: 04/16/25 20:59 Last Admin: 03/18/25 19:57 Dose: 81 mg Documented By: Admin: 03/17/25 21:04 Dose: 81 mg Documented By: CARLOS Bupropion HCl (Bupropion Sr 100 Mg Tabcr) 100 mg PO BID [facility] Stop: 04/16/25 20:59 Last Admin: 03/19/25 08:15 Dose: 100 mg Documented By: Admin: 03/18/25 19:58 Dose: 100 mg Documented By: Admin: 03/18/25 08:15 Dose: 100 mg Documented By: Admin: 03/17/25 21:05 Dose: 100 mg Documented By: CARLOS Clonazepam (Clonazepam 0.5 Mg Tab) 0.25 mg PO HS [facility] Stop: 04/16/25 20:59 Last Admin: 03/18/25 19:54 Dose: 0.25 mg Documented By: Admin: 03/17/25 21:05 Dose: 0.25 mg Documented By: CARLOS Enoxaparin Sodium (Enoxaparin Inj 40 Mg/0.4 Ml Syr) 40 mg SQ Q12 [facility] Stop: 04/16/25 14:29 Last Admin: 03/19/25 08:15 Dose: 40 mg Documented By: Admin: 03/18/25 19:55 Dose: 40 mg Documented By: Admin: 03/18/25 08:15 Dose: 40 mg Documented By: Admin: 03/17/25 21:06 Dose: 40 mg Documented By: Admin: 03/17/25 15:55 Dose: 40 mg Documented By: AMIE Finasteride (Finasteride 5 Mg Tab) 5 mg PO DAILY [facility] Stop: 04/17/25 08:59 Last Admin: 03/19/25 08:15 Dose: 5 mg Documented By: Admin: 03/18/25 08:15 Dose: 5 mg Documented By: ROBERTA Gabapentin (Gabapentin 600 Mg Tab) 600 mg PO QID [facility] Stop: 04/16/25 14:29 Last Admin: 03/19/25 13:09 Dose: 600 mg Documented By: Admin: 03/19/25 08:15 Dose: 600 mg Documented By: Admin: 03/18/25 19:56 Dose: 600 mg Documented By: Admin: 03/18/25 17:38 Dose: 600 mg Documented By: Admin: 03/18/25 13:01 Dose: 600 mg Documented By: Admin: 03/18/25 08:14 Dose: 600 mg Documented By: Admin: 03/17/25 21:17 Dose: Not Given Documented By: Admin: 03/17/25 21:05 Dose: 600 mg Documented By: Admin: 03/17/25 15:55 Dose: 600 mg Documented By: AMIE Lamotrigine (Lamotrigine 100 Mg Tab) 100 mg PO [facility]; Protocol Stop: 04/16/25 20:59 Last Admin: 03/18/25 19:58 Dose: 100 mg Documented By: Admin: 03/17/25 21:04 Dose: 100 mg Documented By: CARLOS Levothyroxine Sodium (Levothyroxine Sodium 75 Mcg Tablet) 75 mcg PO DAILYBB [facility] Stop: 04/17/25 06:29 Last Admin: 03/19/25 06:05 Dose: 75 mcg Documented By: Admin: 03/18/25 05:45 Dose: 75 mcg Documented By: CARLOS Pyridoxine HCl (Pyridoxine Hcl 50 Mg Tab) 100 mg PO BID [facility] Stop: 04/16/25 20:59 Last Admin: 03/19/25 08:15 Dose: 100 mg Documented By: Admin: 03/18/25 19:58 Dose: 100 mg Documented By: Admin: 03/18/25 08:15 Dose: 100 mg Documented By: Admin: 03/17/25 21:04 Dose: 100 mg Documented By: CARLOS Senna/Docusate Sodium (Docusate Sodium/Senna 50/8.6mg Tab) 2 tab PO [facility] Stop: 04/16/25 20:59 Last Admin: 03/18/25 19:55 Dose: 2 tab Documented By: Admin: 03/17/25 21:05 Dose: 2 tab Documented By: CARLOS Simvastatin (Simvastatin 10 Mg Tab) 10 mg PO [facility] Stop: 04/16/25 20:59 Last Admin: 03/18/25 19:59 Dose: 10 mg Documented By: Admin: 03/17/25 21:04 Dose: 10 mg Documented By: CARLOS Valbenazine (Valbenazine Tosylate 80 Mg Cap) 1 each PO [facility] Stop: 04/16/25 20:59 Last Admin: 03/18/25 20:00 Dose: 1 each Documented By: Admin: 03/17/25 21:05 Dose: 1 each Documented By: CARLOS Vitamin D (Cholecalciferol 25 Mcg (1000 Units) Tab) 75 mcg PO DAILY [facility] Stop: 04/17/25 08:59 Last Admin: 03/19/25 08:15 Dose: 75 mcg Documented By: Admin: 03/18/25 08:15 Dose: 75 mcg Documented By: ROBERTA
[2025-03-20 07:20] LABS: Hematocrit (blood only) 42.3 % (42.0-52.0); Hemoglobin 14.7 g/dl (14.0-18.0); Mean Corpuscular Hemoglobin 32.8 pg (25.0-34.0); Mean Corpuscular Hgb Conc 34.8 g/dL (32.0-36.0); Mean Corpuscular Volume 94.4 fL (80.0-100.0); Platelet Count 155 K/uL (130-400); RDW Coefficient of Variation 13.4 % (11.5-14.5); RDW Standard Deviation 46.6 fL (36.4-46.3); Red Blood Count 4.48 M/uL (4.70-6.10); White Blood Count 6.98 K/ul (4.8-10.8)
[2025-03-20 07:38] LABS: BUN Creatinine Ratio 21.9 (10-20); Calcium 8.9 mg/dl (8.6-10.3); Creatinine Clr Calc Pharmacy 136.6 ml/min; Potassium 3.9 mmol/L (3.5-5.1)
--- NOTE | 2025-03-20 17:59 | Hospitalist Progress Note ---
Date of Service March 20, 2025 Assessment & Plan (1) Benign localized prostatic hyperplasia with lower urinary tract symptoms (LUTS): (2) Hyperlipidemia: (3) High blood pressure: (4) Sleep apnea: (5) Bladder mass: (6) Depression: (7) Ambulatory dysfunction: Plan The patient is a 74-year-old male who presented to the ED on with ambulatory dysfunction s/p bilateral knee steroid injections 03/16/2025 Osteoarthritis Ambulatory dysfunction Continue home pain control with Percocet, add lidocaine PT/OT, appreciate ortho input S/p bilateral knee steroid injections 03/16/2025 with chronic OA No active S/S of septic arthritis -awaiting rehab placement Hx DORETHA: Continue CPAP at bedtime Hx hypothyroidism: Continue levothyroxine Hx BPH: Continue finasteride Hx anxiety: Continue Wellbutrin/Lamictal I spent a total of 40 minutes in direct patient care, including [id number] time with the patient and/or family, reviewing medical records, ordering and reviewing diagnostic tests, and coordinating care with other healthcare providers. This time includes: history taking, physical examination, medical decision making, counseling, ECG interpretation, imaging interpretation, lab interpretation, orders, and education, excluding time spent in the performance of separately billed services. Admission and Anticipated Discharge Date Admission Date: March 17, 2025 Subjective Patient seen and examined at bedside. present as well. Patient doing well today. Awaiting placement. Review of Systems Review of Systems: CONSTITUTIONAL: Patient denies fevers, chills, sweats and weight changes. EYES: Patient denies any visual symptoms. EARS, NOSE, AND THROAT: No difficulties with hearing. No symptoms of rhinitis or sore throat. CARDIOVASCULAR: Patient denies chest pains, palpitations, orthopnea and paroxysmal nocturnal dyspnea. RESPIRATORY: No dyspnea on exertion, no wheezing or cough. GI: No nausea, vomiting, diarrhea, constipation, abdominal pain, hematochezia or melena. : No urinary hesitancy or dribbling. No nocturia or urinary frequency. No abnormal urethral discharge. MUSCULOSKELETAL: weakness NEUROLOGIC: No chronic headaches, no seizures. Patient denies numbness, tingling or weakness. PSYCHIATRIC: Patient denies problems with mood disturbance. No problems with anxiety. ENDOCRINE: No excessive urination or excessive thirst. DERMATOLOGIC: Patient denies any rashes or skin changes. Physical Exam Physical Exam: Gen: A&O 3 NAD HEENT: NCAT, EOMI, not icteric. External ears normal. No rhinorrhea. Moist mucous membranes. Neck: Supple, full range of motion, no observable masses, No meningeal sign. Lungs: No Respiratory distress. CV: RRR, no edema. Abdomen: Soft, nondistended, No rebound tenderness. MSK: No joint swelling, no redness. no tenderness to palpation on knees bilaterally Skin: No rashes, petechiae, lesions. Normal color per patient. Neuro: Normal Gait, Grossly intact. Psych: Appropriate for situation. Results & Data Results & Data Vital Signs (Past 12 Hours) Vital Signs Temp Pulse Resp BP BP Pulse Ox O2 Del Method 03/20/25 15:56 36.4 C L 59 L 18 131/79 96 Room Air 03/20/25 07:32 36.4 C L 57 L 16 124/82 97 Room Air Laboratory Results -personally reviewed, stable Hgb and creatinine Medications Administered Acetaminophen (Acetaminophen 325 Mg Tab) 650 mg PO Q4H PRN PRN Reason: mild pain/fever Stop: 04/16/25 14:00 Last Admin: 03/19/25 21:42 Dose: 650 mg Documented By: Admin: 03/19/25 05:18 Dose: 650 mg Documented By: Admin: 03/17/25 22:43 Dose: 650 mg Documented By: Admin: 03/17/25 18:20 Dose: 650 mg Documented By: RAJAN Hydrocodone Bitart/Acetaminophen (Hydrocodone/Acetamophen 5/325mg Tab) 0.5 tab PO TID PRN PRN Reason: MODERATE/SEVERE PAIN Stop: 03/31/25 14:00 Last Admin: 03/19/25 15:10 Dose: 0.5 tab Documented By: Admin: 03/18/25 08:11 Dose: 0.5 tab Documented By: Admin: 03/17/25 21:15 Dose: 0.5 tab Documented By: CARLOS Aspirin (Aspirin 81 Mg Ectab) 81 mg PO QPM [facility] Stop: 04/16/25 20:59 Last Admin: 03/19/25 21:40 Dose: 81 mg Documented By: Admin: 03/18/25 19:57 Dose: 81 mg Documented By: Admin: 03/17/25 21:04 Dose: 81 mg Documented By: CARLOS Bupropion HCl (Bupropion Sr 100 Mg Tabcr) 100 mg PO BID [facility] Stop: 04/16/25 20:59 Last Admin: 03/20/25 08:52 Dose: 100 mg Documented By: Admin: 03/19/25 21:41 Dose: 100 mg Documented By: Admin: 03/19/25 08:15 Dose: 100 mg Documented By: Admin: 03/18/25 19:58 Dose: 100 mg Documented By: Admin: 03/18/25 08:15 Dose: 100 mg Documented By: Admin: 03/17/25 21:05 Dose: 100 mg Documented By: CARLOS Clonazepam (Clonazepam 0.5 Mg Tab) 0.25 mg PO HS [facility] Stop: 04/16/25 20:59 Last Admin: 03/19/25 21:40 Dose: 0.25 mg Documented By: Admin: 03/18/25 19:54 Dose: 0.25 mg Documented By: Admin: 03/17/25 21:05 Dose: 0.25 mg Documented By: CARLOS Enoxaparin Sodium (Enoxaparin Inj 40 Mg/0.4 Ml Syr) 40 mg SQ Q12 [facility] Stop: 04/16/25 14:29 Last Admin: 03/20/25 08:53 Dose: 40 mg Documented By: Admin: 03/19/25 21:43 Dose: 40 mg Documented By: Admin: 03/19/25 08:15 Dose: 40 mg Documented By: Admin: 03/18/25 19:55 Dose: 40 mg Documented By: Admin: 03/18/25 08:15 Dose: 40 mg Documented By: Admin: 03/17/25 21:06 Dose: 40 mg Documented By: Admin: 03/17/25 15:55 Dose: 40 mg Documented By: AMIE Finasteride (Finasteride 5 Mg Tab) 5 mg PO DAILY [facility] Stop: 04/17/25 08:59 Last Admin: 03/20/25 08:53 Dose: 5 mg Documented By: Admin: 03/19/25 08:15 Dose: 5 mg Documented By: Admin: 03/18/25 08:15 Dose: 5 mg Documented By: ROBERTA Gabapentin (Gabapentin 600 Mg Tab) 600 mg PO QID [facility] Stop: 04/16/25 14:29 Last Admin: 03/20/25 16:19 Dose: 600 mg Documented By: Admin: 03/20/25 12:18 Dose: 600 mg Documented By: Admin: 03/20/25 08:52 Dose: 600 mg Documented By: Admin: 03/19/25 21:41 Dose: 600 mg Documented By: Admin: 03/19/25 17:26 Dose: 600 mg Documented By: Admin: 03/19/25 13:09 Dose: 600 mg Documented By: Admin: 03/19/25 08:15 Dose: 600 mg Documented By: Admin: 03/18/25 19:56 Dose: 600 mg Documented By: Admin: 03/18/25 17:38 Dose: 600 mg Documented By: Admin: 03/18/25 13:01 Dose: 600 mg Documented By: Admin: 03/18/25 08:14 Dose: 600 mg Documented By: Admin: 03/17/25 21:17 Dose: Not Given Documented By: Admin: 03/17/25 21:05 Dose: 600 mg Documented By: Admin: 03/17/25 15:55 Dose: 600 mg Documented By: AMIE Lamotrigine (Lamotrigine 100 Mg Tab) 100 mg PO [facility]; Protocol Stop: 04/16/25 20:59 Last Admin: 03/19/25 21:41 Dose: 100 mg Documented By: Admin: 03/18/25 19:58 Dose: 100 mg Documented By: Admin: 03/17/25 21:04 Dose: 100 mg Documented By: CARLOS Levothyroxine Sodium (Levothyroxine Sodium 75 Mcg Tablet) 75 mcg PO DAILYBB [facility] Stop: 04/17/25 06:29 Last Admin: 03/20/25 06:11 Dose: 75 mcg Documented By: Admin: 03/19/25 06:05 Dose: 75 mcg Documented By: Admin: 03/18/25 05:45 Dose: 75 mcg Documented By: CARLOS Pyridoxine HCl (Pyridoxine Hcl 50 Mg Tab) 100 mg PO BID [facility] Stop: 04/16/25 20:59 Last Admin: 03/20/25 08:52 Dose: 100 mg Documented By: Admin: 03/19/25 21:40 Dose: 100 mg Documented By: Admin: 03/19/25 08:15 Dose: 100 mg Documented By: Admin: 03/18/25 19:58 Dose: 100 mg Documented By: Admin: 03/18/25 08:15 Dose: 100 mg Documented By: Admin: 03/17/25 21:04 Dose: 100 mg Documented By: CARLOS Senna/Docusate Sodium (Docusate Sodium/Senna 50/8.6mg Tab) 2 tab PO HS [facility] Stop: 04/16/25 20:59 Last Admin: 03/19/25 21:42 Dose: 2 tab Documented By: Admin: 03/18/25 19:55 Dose: 2 tab Documented By: Admin: 03/17/25 21:05 Dose: 2 tab Documented By: CARLOS Simvastatin (Simvastatin 10 Mg Tab) 10 mg PO HS [facility] Stop: 04/16/25 20:59 Last Admin: 03/19/25 21:40 Dose: 10 mg Documented By: Admin: 03/18/25 19:59 Dose: 10 mg Documented By: Admin: 03/17/25 21:04 Dose: 10 mg Documented By: CARLOS Valbenazine (Valbenazine Tosylate 80 Mg Cap) 1 each PO HS [facility] Stop: 04/16/25 20:59 Last Admin: 03/19/25 21:43 Dose: 1 each Documented By: Admin: 03/18/25 20:00 Dose: 1 each Documented By: Admin: 03/17/25 21:05 Dose: 1 each Documented By: CARLOS Vitamin D (Cholecalciferol 25 Mcg (1000 Units) Tab) 75 mcg PO DAILY [facility] Stop: 04/17/25 08:59 Last Admin: 03/20/25 08:52 Dose: 75 mcg Documented By: Admin: 03/19/25 08:15 Dose: 75 mcg Documented By: Admin: 03/18/25 08:15 Dose: 75 mcg Documented By: ROBERTA
--- NOTE | 2025-03-21 17:04 | Hospitalist Progress Note ---
Date of Service March 21, 2025 Assessment & Plan (1) Benign localized prostatic hyperplasia with lower urinary tract symptoms (LUTS): (2) Hyperlipidemia: (3) High blood pressure: (4) Sleep apnea: (5) Bladder mass: (6) Depression: (7) Ambulatory dysfunction: Plan The patient is a 74-year-old male who presented to the ED on with ambulatory dysfunction s/p bilateral knee steroid injections 03/16/2025 Osteoarthritis Ambulatory dysfunction Continue home pain control with Percocet, add lidocaine PT/OT, appreciate ortho input S/p bilateral knee steroid injections 03/16/2025 with chronic OA No active S/S of septic arthritis -awaiting rehab placement, medically stable for discharge to SNF Hx DORETHA: Continue CPAP at bedtime Hx hypothyroidism: Continue levothyroxine Hx BPH: Continue finasteride Hx anxiety: Continue Wellbutrin/Lamictal I spent a total of 35 minutes in direct patient care, including [id number] t tonya with the patient and/or family, reviewing medical records, ordering and reviewing diagnostic tests, and coordinating care with other healthcare providers. This time includes: history taking, physical examination, medical decision making, counseling, ECG interpretation, imaging interpretation, lab interpretation, orders, and education, excluding time spent in the performance of separately billed services. Admission and Anticipated Discharge Date Admission Date: March 17, 2025 Subjective Patient seen and examined at bedside. Patient doing well today, no concerns, discussed case with . Review of Systems Review of Systems: CONSTITUTIONAL: Patient denies fevers, chills, sweats and weight changes. EYES: Patient denies any visual symptoms. EARS, NOSE, AND THROAT: No difficulties with hearing. No symptoms of rhinitis or sore throat. CARDIOVASCULAR: Patient denies chest pains, palpitations, orthopnea and paroxysmal nocturnal dyspnea. RESPIRATORY: No dyspnea on exertion, no wheezing or cough. GI: No nausea, vomiting, diarrhea, constipation, abdominal pain, hematochezia or melena. : No urinary hesitancy or dribbling. No nocturia or urinary frequency. No abnormal urethral discharge. MUSCULOSKELETAL: weakness NEUROLOGIC: No chronic headaches, no seizures. Patient denies numbness, tingling or weakness. PSYCHIATRIC: Patient denies problems with mood disturbance. No problems with anxiety. ENDOCRINE: No excessive urination or excessive thirst. DERMATOLOGIC: Patient denies any rashes or skin changes. Physical Exam Physical Exam: Gen: A&O 3 NAD HEENT: NCAT, EOMI, not icteric. External ears normal. No rhinorrhea. Moist mucous membranes. Neck: Supple, full range of motion, no observable masses, No meningeal sign. Lungs: No Respiratory distress. CV: RRR, no edema. Abdomen: Soft, nondistended, No rebound tenderness. MSK: No joint swelling, no redness. no tenderness to palpation on knees bilaterally Skin: No rashes, petechiae, lesions. Normal color per patient. Neuro: Normal Gait, Grossly intact. Psych: Appropriate for situation. Results & Data Results & Data Vital Signs (Past 12 Hours) Vital Signs Temp Pulse Resp BP Pulse Ox O2 Del Method 03/21/25 15:10 36.7 C 60 18 118/75 98 Room Air 03/21/25 07:41 36.4 C L 57 L 18 121/73 95 Room Air 03/21/25 07:40 Room Air Medications Administered Acetaminophen (Acetaminophen 325 Mg Tab) 650 mg PO Q4H PRN PRN Reason: mild pain/fever Stop: 04/16/25 14:00 Last Admin: 03/21/25 10:06 Dose: 650 mg Documented By: Admin: 03/19/25 21:42 Dose: 650 mg Documented By: Admin: 03/19/25 05:18 Dose: 650 mg Documented By: Admin: 03/17/25 22:43 Dose: 650 mg Documented By: Admin: 03/17/25 18:20 Dose: 650 mg Documented By: RAJAN Hydrocodone Bitart/Acetaminophen (Hydrocodone/Acetamophen 5/325mg Tab) 0.5 tab PO TID PRN PRN Reason: MODERATE/SEVERE PAIN Stop: 03/31/25 14:00 Last Admin: 03/19/25 15:10 Dose: 0.5 tab Documented By: Admin: 03/18/25 08:11 Dose: 0.5 tab Documented By: Admin: 03/17/25 21:15 Dose: 0.5 tab Documented By: CARLOS Aspirin (Aspirin 81 Mg Ectab) 81 mg PO QPM JAGDISH Stop: 04/16/25 20:59 Last Admin: 03/20/25 21:10 Dose: 81 mg Documented By: Admin: 03/19/25 21:40 Dose: 81 mg Documented By: Admin: 03/18/25 19:57 Dose: 81 mg Documented By: Admin: 03/17/25 21:04 Dose: 81 mg Documented By: CARLOS Bupropion HCl (Bupropion Sr 100 Mg Tabcr) 100 mg PO BID JAGDISH Stop: 04/16/25 20:59 Last Admin: 03/21/25 08:37 Dose: 100 mg Documented By: Admin: 03/20/25 21:10 Dose: 100 mg Documented By: Admin: 03/20/25 08:52 Dose: 100 mg Documented By: Admin: 03/19/25 21:41 Dose: 100 mg Documented By: Admin: 03/19/25 08:15 Dose: 100 mg Documented By: Admin: 03/18/25 19:58 Dose: 100 mg Documented By: Admin: 03/18/25 08:15 Dose: 100 mg Documented By: Admin: 03/17/25 21:05 Dose: 100 mg Documented By: CARLOS Clonazepam (Clonazepam 0.5 Mg Tab) 0.25 mg PO HS JAGDISH Stop: 04/16/25 20:59 Last Admin: 03/20/25 21:11 Dose: 0.25 mg Documented By: Admin: 03/19/25 21:40 Dose: 0.25 mg Documented By: Admin: 03/18/25 19:54 Dose: 0.25 mg Documented By: Admin: 03/17/25 21:05 Dose: 0.25 mg Documented By: CARLOS Enoxaparin Sodium (Enoxaparin Inj 40 Mg/0.4 Ml Syr) 40 mg SQ Q12 JAGDISH Stop: 04/16/25 14:29 Last Admin: 03/21/25 08:38 Dose: 40 mg Documented By: Admin: 03/20/25 21:10 Dose: 40 mg Documented By: Admin: 03/20/25 08:53 Dose: 40 mg Documented By: Admin: 03/19/25 21:43 Dose: 40 mg Documented By: Admin: 03/19/25 08:15 Dose: 40 mg Documented By: Admin: 03/18/25 19:55 Dose: 40 mg Documented By: Admin: 03/18/25 08:15 Dose: 40 mg Documented By: Admin: 03/17/25 21:06 Dose: 40 mg Documented By: Admin: 03/17/25 15:55 Dose: 40 mg Documented By: AMIE Finasteride (Finasteride 5 Mg Tab) 5 mg PO DAILY JAGDISH Stop: 04/17/25 08:59 Last Admin: 03/21/25 08:37 Dose: 5 mg Documented By: Admin: 03/20/25 08:53 Dose: 5 mg Documented By: Admin: 03/19/25 08:15 Dose: 5 mg Documented By: Admin: 03/18/25 08:15 Dose: 5 mg Documented By: ROBERTA Gabapentin (Gabapentin 600 Mg Tab) 600 mg PO QID JAGDISH Stop: 04/16/25 14:29 Last Admin: 03/21/25 12:36 Dose: 600 mg Documented By: Admin: 03/21/25 08:38 Dose: 600 mg Documented By: Admin: 03/20/25 21:11 Dose: 600 mg Documented By: Admin: 03/20/25 16:19 Dose: 600 mg Documented By: Admin: 03/20/25 12:18 Dose: 600 mg Documented By: Admin: 03/20/25 08:52 Dose: 600 mg Documented By: Admin: 03/19/25 21:41 Dose: 600 mg Documented By: Admin: 03/19/25 17:26 Dose: 600 mg Documented By: Admin: 03/19/25 13:09 Dose: 600 mg Documented By: Admin: 03/19/25 08:15 Dose: 600 mg Documented By: Admin: 03/18/25 19:56 Dose: 600 mg Documented By: Admin: 03/18/25 17:38 Dose: 600 mg Documented By: Admin: 03/18/25 13:01 Dose: 600 mg Documented By: Admin: 03/18/25 08:14 Dose: 600 mg Documented By: Admin: 03/17/25 21:17 Dose: Not Given Documented By: Admin: 03/17/25 21:05 Dose: 600 mg Documented By: Admin: 03/17/25 15:55 Dose: 600 mg Documented By: AMIE Lamotrigine (Lamotrigine 100 Mg Tab) 100 mg PO HS JAGDISH; Protocol Stop: 04/16/25 20:59 Last Admin: 03/20/25 21:11 Dose: 100 mg Documented By: Admin: 03/19/25 21:41 Dose: 100 mg Documented By: Admin: 03/18/25 19:58 Dose: 100 mg Documented By: Admin: 03/17/25 21:04 Dose: 100 mg Documented By: CARLOS Levothyroxine Sodium (Levothyroxine Sodium 75 Mcg Tablet) 75 mcg PO DAILYBB JAGDISH Stop: 04/17/25 06:29 Last Admin: 03/21/25 06:20 Dose: 75 mcg Documented By: Admin: 03/20/25 06:11 Dose: 75 mcg Documented By: Admin: 03/19/25 06:05 Dose: 75 mcg Documented By: Admin: 03/18/25 05:45 Dose: 75 mcg Documented By: CARLOS Pyridoxine HCl (Pyridoxine Hcl 50 Mg Tab) 100 mg PO BID JAGDISH Stop: 04/16/25 20:59 Last Admin: 03/21/25 08:38 Dose: 100 mg Documented By: Admin: 03/20/25 21:11 Dose: 100 mg Documented By: Admin: 03/20/25 08:52 Dose: 100 mg Documented By: Admin: 03/19/25 21:40 Dose: 100 mg Documented By: Admin: 03/19/25 08:15 Dose: 100 mg Documented By: Admin: 03/18/25 19:58 Dose: 100 mg Documented By: Admin: 03/18/25 08:15 Dose: 100 mg Documented By: Admin: 03/17/25 21:04 Dose: 100 mg Documented By: CARLOS Senna/Docusate Sodium (Docusate Sodium/Senna 50/8.6mg Tab) 2 tab PO HS JAGDISH Stop: 04/16/25 20:59 Last Admin: 03/20/25 21:11 Dose: 2 tab Documented By: Admin: 03/19/25 21:42 Dose: 2 tab Documented By: Admin: 03/18/25 19:55 Dose: 2 tab Documented By: Admin: 03/17/25 21:05 Dose: 2 tab Documented By: CARLOS Simvastatin (Simvastatin 10 Mg Tab) 10 mg PO HS JAGDISH Stop: 04/16/25 20:59 Last Admin: 03/20/25 21:10 Dose: 10 mg Documented By: Admin: 03/19/25 21:40 Dose: 10 mg Documented By: Admin: 03/18/25 19:59 Dose: 10 mg Documented By: Admin: 03/17/25 21:04 Dose: 10 mg Documented By: CARLOS Valbenazine (Valbenazine Tosylate 80 Mg Cap) 1 each PO HS JAGDISH Stop: 04/16/25 20:59 Last Admin: 03/20/25 21:11 Dose: 1 each Documented By: Admin: 03/19/25 21:43 Dose: 1 each Documented By: Admin: 03/18/25 20:00 Dose: 1 each Documented By: Admin: 03/17/25 21:05 Dose: 1 each Documented By: CARLOS Vitamin D (Cholecalciferol 25 Mcg (1000 Units) Tab) 75 mcg PO DAILY JAGDISH Stop: 04/17/25 08:59 Last Admin: 03/21/25 08:38 Dose: 75 mcg Documented By: Admin: 03/20/25 08:52 Dose: 75 mcg Documented By: Admin: 03/19/25 08:15 Dose: 75 mcg Documented By: Admin: 03/18/25 08:15 Dose: 75 mcg Documented By: ROBERTA
--- NOTE | 2025-03-22 16:30 | Hospitalist Progress Note ---
Date of Service March 22, 2025 Assessment & Plan (1) Benign localized prostatic hyperplasia with lower urinary tract symptoms (LUTS): (2) Hyperlipidemia: (3) High blood pressure: (4) Sleep apnea: (5) Bladder mass: (6) Depression: (7) Ambulatory dysfunction: Plan The patient is a 74-year-old male who presented to the ED on with ambulatory dysfunction s/p bilateral knee steroid injections 03/16/2025 Osteoarthritis Ambulatory dysfunction Continue home pain control with Percocet, add lidocaine PT/OT, appreciate ortho input S/p bilateral knee steroid injections 03/16/2025 with chronic OA No active S/S of septic arthritis -awaiting rehab placement, medically stable for discharge to SNF -[facility] called this afternoon and denied for acute rehab, patient will need SNF placement Hx DORETHA: Continue CPAP at bedtime Hx hypothyroidism: Continue levothyroxine Hx BPH: Continue finasteride Hx anxiety: Continue Wellbutrin/Lamictal I spent a total of 50 minutes in direct patient care, including [id number] time with the patient and/or family, reviewing medical records, ordering and rev iewing diagnostic tests, and coordinating care with other healthcare providers. This time includes: history taking, physical examination, medical decision making, counseling, ECG interpretation, imaging interpretation, lab interpretation, orders, and education, excluding time spent in the performance of separately billed services. Admission and Anticipated Discharge Date Admission Date: March 17, 2025 Subjective Patient seen and examined at bedside. Patient doing well today, working with rehab. Review of Systems Review of Systems: CONSTITUTIONAL: Patient denies fevers, chills, sweats and weight changes. EYES: Patient denies any visual symptoms. EARS, NOSE, AND THROAT: No difficulties with hearing. No symptoms of rhinitis or sore throat. CARDIOVASCULAR: Patient denies chest pains, palpitations, orthopnea and paroxysmal nocturnal dyspnea. RESPIRATORY: No dyspnea on exertion, no wheezing or cough. GI: No nausea, vomiting, diarrhea, constipation, abdominal pain, hematochezia or melena. : No urinary hesitancy or dribbling. No nocturia or urinary frequency. No abnormal urethral discharge. MUSCULOSKELETAL: weakness NEUROLOGIC: No chronic headaches, no seizures. Patient denies numbness, tingling or weakness. PSYCHIATRIC: Patient denies problems with mood disturbance. No problems with anxiety. ENDOCRINE: No excessive urination or excessive thirst. DERMATOLOGIC: Patient denies any rashes or skin changes. Physical Exam Physical Exam: Gen: A&O 3 NAD HEENT: NCAT, EOMI, not icteric. External ears normal. No rhinorrhea. Moist mucous membranes. Neck: Supple, full range of motion, no observable masses, No meningeal sign. Lungs: No Respiratory distress. CV: RRR, no edema. Abdomen: Soft, nondistended, No rebound tenderness. MSK: No joint swelling, no redness. no tenderness to palpation on knees bilaterally Skin: No rashes, petechiae, lesions. Normal color per patient. Neuro: Normal Gait, Grossly intact. Psych: Appropriate for situation. Results & Data Results & Data Vital Signs (Past 12 Hours) Vital Signs Temp Pulse Resp BP Pulse Ox O2 Del Method 03/22/25 07:47 36.7 C 66 18 138/85 93 Room Air 03/22/25 07:40 Room Air Medications Administered Acetaminophen (Acetaminophen 325 Mg Tab) 650 mg PO Q4H PRN PRN Reason: mild pain/fever Stop: 04/16/25 14:00 Last Admin: 03/22/25 11:54 Dose: 650 mg Documented By: Admin: 03/21/25 21:30 Dose: 650 mg Documented By: Admin: 03/21/25 10:06 Dose: 650 mg Documented By: Admin: 03/19/25 21:42 Dose: 650 mg Documented By: Admin: 03/19/25 05:18 Dose: 650 mg Documented By: Admin: 03/17/25 22:43 Dose: 650 mg Documented By: Admin: 03/17/25 18:20 Dose: 650 mg Documented By: RAJAN Hydrocodone Bitart/Acetaminophen (Hydrocodone/Acetamophen 5/325mg Tab) 0.5 tab PO TID PRN PRN Reason: MODERATE/SEVERE PAIN Stop: 03/31/25 14:00 Last Admin: 03/19/25 15:10 Dose: 0.5 tab Documented By: Admin: 03/18/25 08:11 Dose: 0.5 tab Documented By: Admin: 03/17/25 21:15 Dose: 0.5 tab Documented By: CARLOS Aspirin (Aspirin 81 Mg Ectab) 81 mg PO QPM JAGDISH Stop: 04/16/25 20:59 Last Admin: 03/21/25 21:28 Dose: 81 mg Documented By: Admin: 03/20/25 21:10 Dose: 81 mg Documented By: Admin: 03/19/25 21:40 Dose: 81 mg Documented By: Admin: 03/18/25 19:57 Dose: 81 mg Documented By: Admin: 03/17/25 21:04 Dose: 81 mg Documented By: CARLOS Bupropion HCl (Bupropion Sr 100 Mg Tabcr) 100 mg PO BID JAGDISH Stop: 04/16/25 20:59 Last Admin: 03/22/25 08:09 Dose: 100 mg Documented By: Admin: 03/21/25 21:28 Dose: 100 mg Documented By: Admin: 03/21/25 08:37 Dose: 100 mg Documented By: Admin: 03/20/25 21:10 Dose: 100 mg Documented By: Admin: 03/20/25 08:52 Dose: 100 mg Documented By: Admin: 03/19/25 21:41 Dose: 100 mg Documented By: Admin: 03/19/25 08:15 Dose: 100 mg Documented By: Admin: 03/18/25 19:58 Dose: 100 mg Documented By: Admin: 03/18/25 08:15 Dose: 100 mg Documented By: Admin: 03/17/25 21:05 Dose: 100 mg Documented By: CARLOS Clonazepam (Clonazepam 0.5 Mg Tab) 0.25 mg PO HS JAGDISH Stop: 04/16/25 20:59 Last Admin: 03/21/25 21:29 Dose: 0.25 mg Documented By: Admin: 03/20/25 21:11 Dose: 0.25 mg Documented By: Admin: 03/19/25 21:40 Dose: 0.25 mg Documented By: Admin: 03/18/25 19:54 Dose: 0.25 mg Documented By: Admin: 03/17/25 21:05 Dose: 0.25 mg Documented By: CARLOS Enoxaparin Sodium (Enoxaparin Inj 40 Mg/0.4 Ml Syr) 40 mg SQ Q12 JAGDISH Stop: 04/16/25 14:29 Last Admin: 03/22/25 08:09 Dose: 40 mg Documented By: Admin: 03/21/25 21:29 Dose: 40 mg Documented By: Admin: 03/21/25 08:38 Dose: 40 mg Documented By: Admin: 03/20/25 21:10 Dose: 40 mg Documented By: Admin: 03/20/25 08:53 Dose: 40 mg Documented By: Admin: 03/19/25 21:43 Dose: 40 mg Documented By: Admin: 03/19/25 08:15 Dose: 40 mg Documented By: Admin: 03/18/25 19:55 Dose: 40 mg Documented By: Admin: 03/18/25 08:15 Dose: 40 mg Documented By: Admin: 03/17/25 21:06 Dose: 40 mg Documented By: Admin: 03/17/25 15:55 Dose: 40 mg Documented By: AMIE Finasteride (Finasteride 5 Mg Tab) 5 mg PO DAILY JAGDISH Stop: 04/17/25 08:59 Last Admin: 03/22/25 08:09 Dose: 5 mg Documented By: Admin: 03/21/25 08:37 Dose: 5 mg Documented By: Admin: 03/20/25 08:53 Dose: 5 mg Documented By: Admin: 03/19/25 08:15 Dose: 5 mg Documented By: Admin: 03/18/25 08:15 Dose: 5 mg Documented By: ROBERTA Gabapentin (Gabapentin 600 Mg Tab) 600 mg PO QID JAGDISH Stop: 04/16/25 14:29 Last Admin: 03/22/25 12:06 Dose: 600 mg Documented By: Admin: 03/22/25 08:08 Dose: 600 mg Documented By: Admin: 03/21/25 21:29 Dose: 600 mg Documented By: Admin: 03/21/25 17:26 Dose: 600 mg Documented By: Admin: 03/21/25 12:36 Dose: 600 mg Documented By: Admin: 03/21/25 08:38 Dose: 600 mg Documented By: Admin: 03/20/25 21:11 Dose: 600 mg Documented By: Admin: 03/20/25 16:19 Dose: 600 mg Documented By: Admin: 03/20/25 12:18 Dose: 600 mg Documented By: Admin: 03/20/25 08:52 Dose: 600 mg Documented By: Admin: 03/19/25 21:41 Dose: 600 mg Documented By: Admin: 03/19/25 17:26 Dose: 600 mg Documented By: Admin: 03/19/25 13:09 Dose: 600 mg Documented By: Admin: 03/19/25 08:15 Dose: 600 mg Documented By: Admin: 03/18/25 19:56 Dose: 600 mg Documented By: Admin: 03/18/25 17:38 Dose: 600 mg Documented By: Admin: 03/18/25 13:01 Dose: 600 mg Documented By: Admin: 03/18/25 08:14 Dose: 600 mg Documented By: Admin: 03/17/25 21:17 Dose: Not Given Documented By: Admin: 03/17/25 21:05 Dose: 600 mg Documented By: Admin: 03/17/25 15:55 Dose: 600 mg Documented By: AMIE Lamotrigine (Lamotrigine 100 Mg Tab) 100 mg PO JAGDISH; Protocol Stop: 04/16/25 20:59 Last Admin: 03/21/25 21:29 Dose: 100 mg Documented By: Admin: 03/20/25 21:11 Dose: 100 mg Documented By: Admin: 03/19/25 21:41 Dose: 100 mg Documented By: Admin: 03/18/25 19:58 Dose: 100 mg Documented By: Admin: 03/17/25 21:04 Dose: 100 mg Documented By: CARLOS Levothyroxine Sodium (Levothyroxine Sodium 75 Mcg Tablet) 75 mcg PO DAILYBB JAGDISH Stop: 04/17/25 06:29 Last Admin: 03/22/25 06:03 Dose: 75 mcg Documented By: Admin: 03/21/25 06:20 Dose: 75 mcg Documented By: Admin: 03/20/25 06:11 Dose: 75 mcg Documented By: Admin: 03/19/25 06:05 Dose: 75 mcg Documented By: Admin: 03/18/25 05:45 Dose: 75 mcg Documented By: CARLOS Pyridoxine HCl (Pyridoxine Hcl 50 Mg Tab) 100 mg PO BID JAGDISH Stop: 04/16/25 20:59 Last Admin: 03/22/25 08:08 Dose: 100 mg Documented By: Admin: 03/21/25 21:31 Dose: 100 mg Documented By: Admin: 03/21/25 08:38 Dose: 100 mg Documented By: Admin: 03/20/25 21:11 Dose: 100 mg Documented By: Admin: 03/20/25 08:52 Dose: 100 mg Documented By: Admin: 03/19/25 21:40 Dose: 100 mg Documented By: Admin: 03/19/25 08:15 Dose: 100 mg Documented By: Admin: 03/18/25 19:58 Dose: 100 mg Documented By: Admin: 03/18/25 08:15 Dose: 100 mg Documented By: Admin: 03/17/25 21:04 Dose: 100 mg Documented By: CARLOS Senna/Docusate Sodium (Docusate Sodium/Senna 50/8.6mg Tab) 2 tab PO HS JAGDISH Stop: 04/16/25 20:59 Last Admin: 03/21/25 21:29 Dose: 2 tab Documented By: Admin: 03/20/25 21:11 Dose: 2 tab Documented By: Admin: 03/19/25 21:42 Dose: 2 tab Documented By: Admin: 03/18/25 19:55 Dose: 2 tab Documented By: Admin: 03/17/25 21:05 Dose: 2 tab Documented By: CARLOS Simvastatin (Simvastatin 10 Mg Tab) 10 mg PO HS JAGDISH Stop: 04/16/25 20:59 Last Admin: 03/21/25 21:30 Dose: 10 mg Documented By: Admin: 03/20/25 21:10 Dose: 10 mg Documented By: Admin: 03/19/25 21:40 Dose: 10 mg Documented By: Admin: 03/18/25 19:59 Dose: 10 mg Documented By: Admin: 03/17/25 21:04 Dose: 10 mg Documented By: CARLOS Valbenazine (Valbenazine Tosylate 80 Mg Cap) 1 each PO HS JAGDISH Stop: 04/16/25 20:59 Last Admin: 03/21/25 21:30 Dose: 1 each Documented By: Admin: 03/20/25 21:11 Dose: 1 each Documented By: Admin: 03/19/25 21:43 Dose: 1 each Documented By: Admin: 03/18/25 20:00 Dose: 1 each Documented By: Admin: 03/17/25 21:05 Dose: 1 each Documented By: CARLOS Vitamin D (Cholecalciferol 25 Mcg (1000 Units) Tab) 75 mcg PO DAILY JAGDISH Stop: 04/17/25 08:59 Last Admin: 03/22/25 08:09 Dose: 75 mcg Documented By: Admin: 03/21/25 08:38 Dose: 75 mcg Documented By: Admin: 03/20/25 08:52 Dose: 75 mcg Documented By: Admin: 03/19/25 08:15 Dose: 75 mcg Documented By: Admin: 03/18/25 08:15 Dose: 75 mcg Documented By: ROBERTA
[2025-03-23 04:37] LABS: Creatinine Clr Calc Pharmacy 121.6 ml/min
[2025-03-23] MEDS: POLYETHYLENE (MIRALAX) 17 GM PACK PO SCH (09:19)
--- NOTE | 2025-03-23 15:36 | Hospitalist Progress Note ---
Date of Service March 23, 2025 Assessment & Plan (1) Benign localized prostatic hyperplasia with lower urinary tract symptoms (LUTS): (2) Hyperlipidemia: (3) High blood pressure: (4) Sleep apnea: (5) Bladder mass: (6) Depression: (7) Ambulatory dysfunction: Plan The patient is a 74-year-old male who presented to the ED on with ambulatory dysfunction s/p bilateral knee steroid injections 03/16/2025 Osteoarthritis Ambulatory dysfunction Continue home pain control with Percocet, add lidocaine PT/OT, appreciate ortho input S/p bilateral knee steroid injections 03/16/2025 with chronic OA No active S/S of septic arthritis -awaiting SNF placement Hx DORETHA: Continue CPAP at bedtime Hx hypothyroidism: Continue levothyroxine Hx BPH: Continue finasteride Hx anxiety: Continue Wellbutrin/Lamictal I spent a total of 40 minutes in direct patient care, including [id number] time with the patient and/or family, reviewing medical records, ordering and reviewing diagnostic tests, and coordinating care with other healthcare providers. This time includes: history taking, physical examination, medical decision making, counseling, ECG interpretation, imaging interpretation, lab interpretation, orders, and education, excluding time spent in the performance of separately billed services. Admission and Anticipated Discharge Date Admission Date: March 17, 2025 Subjective Patient seen and examined at bedside. Patient doing well today. Discussed SNF options with and patient at bedside, appreciative of the update. Review of Systems Review of Systems: CONSTITUTIONAL: Patient denies fevers, chills, sweats and weight changes. EYES: Patient denies any visual symptoms. EARS, NOSE, AND THROAT: No difficulties with hearing. No symptoms of rhinitis or sore throat. CARDIOVASCULAR: Patient denies chest pains, palpitations, orthopnea and paroxysmal nocturnal dyspnea. RESPIRATORY: No dyspnea on exertion, no wheezing or cough. GI: No nausea, vomiting, diarrhea, constipation, abdominal pain, hematochezia or melena. : No urinary hesitancy or dribbling. No nocturia or urinary frequency. No abnormal urethral discharge. MUSCULOSKELETAL: weakness NEUROLOGIC: No chronic headaches, no seizures. Patient denies numbness, tingling or weakness. PSYCHIATRIC: Patient denies problems with mood disturbance. No problems with anxiety. ENDOCRINE: No excessive urination or excessive thirst. DERMATOLOGIC: Patient denies any rashes or skin changes. Physical Exam Physical Exam: Gen: A&O 3 NAD HEENT: NCAT, EOMI, not icteric. External ears normal. No rhinorrhea. Moist mucous membranes. Neck: Supple, full range of motion, no observable masses, No meningeal sign. Lungs: No Respiratory distress. CV: RRR, no edema. Abdomen: Soft, nondistended, No rebound tenderness. MSK: No joint swelling, no redness. no tenderness to palpation on knees bilaterally Skin: No rashes, petechiae, lesions. Normal color per patient. Neuro: Normal Gait, Grossly intact. Psych: Appropriate for situation. Results & Data Results & Data Vital Signs (Past 12 Hours) Vital Signs Temp Pulse Resp BP Pulse Ox O2 Del Method 03/23/25 14:37 36.5 C 56 L 18 155/99 H 97 Room Air 03/23/25 09:00 Room Air 03/23/25 07:54 36.7 C 62 18 121/77 96 Room Air Laboratory Results -personally reviewed, creatinine stable Medications Administered Acetaminophen (Acetaminophen 325 Mg Tab) 650 mg PO Q4H PRN PRN Reason: mild pain/fever Stop: 04/16/25 14:00 Last Admin: 03/23/25 14:48 Dose: 650 mg Documented By: Admin: 03/23/25 08:06 Dose: 650 mg Documented By: Admin: 03/22/25 19:51 Dose: 650 mg Documented By: Admin: 03/22/25 11:54 Dose: 650 mg Documented By: Admin: 03/21/25 21:30 Dose: 650 mg Documented By: Admin: 03/21/25 10:06 Dose: 650 mg Documented By: Admin: 03/19/25 21:42 Dose: 650 mg Documented By: Admin: 03/19/25 05:18 Dose: 650 mg Documented By: Admin: 03/17/25 22:43 Dose: 650 mg Documented By: Admin: 03/17/25 18:20 Dose: 650 mg Documented By: RRD Hydrocodone Bitart/Acetaminophen (Hydrocodone/Acetamophen 5/325mg Tab) 0.5 tab PO TID PRN PRN Reason: MODERATE/SEVERE PAIN Stop: 03/31/25 14:00 Last Admin: 03/19/25 15:10 Dose: 0.5 tab Documented By: Admin: 03/18/25 08:11 Dose: 0.5 tab Documented By: Admin: 03/17/25 21:15 Dose: 0.5 tab Documented By: CARLOS Aspirin (Aspirin 81 Mg Ectab) 81 mg PO QPM JAGDISH Stop: 04/16/25 20:59 Last Admin: 03/22/25 20:59 Dose: 81 mg Documented By: Admin: 03/21/25 21:28 Dose: 81 mg Documented By: Admin: 03/20/25 21:10 Dose: 81 mg Documented By: Admin: 03/19/25 21:40 Dose: 81 mg Documented By: Admin: 03/18/25 19:57 Dose: 81 mg Documented By: Admin: 03/17/25 21:04 Dose: 81 mg Documented By: CARLOS Bupropion HCl (Bupropion Sr 100 Mg Tabcr) 100 mg PO BID JAGDISH Stop: 04/16/25 20:59 Last Admin: 03/23/25 08:07 Dose: 100 mg Documented By: Admin: 03/22/25 20:59 Dose: 100 mg Documented By: Admin: 03/22/25 08:09 Dose: 100 mg Documented By: Admin: 03/21/25 21:28 Dose: 100 mg Documented By: Admin: 03/21/25 08:37 Dose: 100 mg Documented By: Admin: 03/20/25 21:10 Dose: 100 mg Documented By: Admin: 03/20/25 08:52 Dose: 100 mg Documented By: Admin: 03/19/25 21:41 Dose: 100 mg Documented By: Admin: 03/19/25 08:15 Dose: 100 mg Documented By: Admin: 03/18/25 19:58 Dose: 100 mg Documented By: Admin: 03/18/25 08:15 Dose: 100 mg Documented By: Admin: 03/17/25 21:05 Dose: 100 mg Documented By: CARLOS Clonazepam (Clonazepam 0.5 Mg Tab) 0.25 mg PO HS JAGDISH Stop: 04/16/25 20:59 Last Admin: 03/22/25 20:58 Dose: 0.25 mg Documented By: Admin: 03/21/25 21:29 Dose: 0.25 mg Documented By: Admin: 03/20/25 21:11 Dose: 0.25 mg Documented By: Admin: 03/19/25 21:40 Dose: 0.25 mg Documented By: Admin: 03/18/25 19:54 Dose: 0.25 mg Documented By: Admin: 03/17/25 21:05 Dose: 0.25 mg Documented By: CARLOS Enoxaparin Sodium (Enoxaparin Inj 40 Mg/0.4 Ml Syr) 40 mg SQ Q12 JAGDISH Stop: 04/16/25 14:29 Last Admin: 03/23/25 08:06 Dose: 40 mg Documented By: Admin: 03/22/25 20:58 Dose: 40 mg Documented By: Admin: 03/22/25 08:09 Dose: 40 mg Documented By: Admin: 03/21/25 21:29 Dose: 40 mg Documented By: Admin: 03/21/25 08:38 Dose: 40 mg Documented By: Admin: 03/20/25 21:10 Dose: 40 mg Documented By: Admin: 03/20/25 08:53 Dose: 40 mg Documented By: Admin: 03/19/25 21:43 Dose: 40 mg Documented By: Admin: 03/19/25 08:15 Dose: 40 mg Documented By: Admin: 03/18/25 19:55 Dose: 40 mg Documented By: Admin: 03/18/25 08:15 Dose: 40 mg Documented By: Admin: 03/17/25 21:06 Dose: 40 mg Documented By: Admin: 03/17/25 15:55 Dose: 40 mg Documented By: AMIE Finasteride (Finasteride 5 Mg Tab) 5 mg PO DAILY JAGDISH Stop: 04/17/25 08:59 Last Admin: 03/23/25 08:07 Dose: 5 mg Documented By: Admin: 03/22/25 08:09 Dose: 5 mg Documented By: Admin: 03/21/25 08:37 Dose: 5 mg Documented By: Admin: 03/20/25 08:53 Dose: 5 mg Documented By: Admin: 03/19/25 08:15 Dose: 5 mg Documented By: Admin: 03/18/25 08:15 Dose: 5 mg Documented By: ROBERTA Gabapentin (Gabapentin 600 Mg Tab) 600 mg PO QID JAGDISH Stop: 04/16/25 14:29 Last Admin: 03/23/25 13:25 Dose: 600 mg Documented By: Admin: 03/23/25 08:07 Dose: 600 mg Documented By: Admin: 03/22/25 20:59 Dose: 600 mg Documented By: Admin: 03/22/25 17:20 Dose: 600 mg Documented By: Admin: 03/22/25 12:06 Dose: 600 mg Documented By: Admin: 03/22/25 08:08 Dose: 600 mg Documented By: Admin: 03/21/25 21:29 Dose: 600 mg Documented By: Admin: 03/21/25 17:26 Dose: 600 mg Documented By: Admin: 03/21/25 12:36 Dose: 600 mg Documented By: Admin: 03/21/25 08:38 Dose: 600 mg Documented By: Admin: 03/20/25 21:11 Dose: 600 mg Documented By: Admin: 03/20/25 16:19 Dose: 600 mg Documented By: Admin: 03/20/25 12:18 Dose: 600 mg Documented By: Admin: 03/20/25 08:52 Dose: 600 mg Documented By: Admin: 03/19/25 21:41 Dose: 600 mg Documented By: Admin: 03/19/25 17:26 Dose: 600 mg Documented By: Admin: 03/19/25 13:09 Dose: 600 mg Documented By: Admin: 03/19/25 08:15 Dose: 600 mg Documented By: Admin: 03/18/25 19:56 Dose: 600 mg Documented By: Admin: 03/18/25 17:38 Dose: 600 mg Documented By: Admin: 03/18/25 13:01 Dose: 600 mg Documented By: Admin: 03/18/25 08:14 Dose: 600 mg Documented By: Admin: 03/17/25 21:17 Dose: Not Given Documented By: Admin: 03/17/25 21:05 Dose: 600 mg Documented By: Admin: 03/17/25 15:55 Dose: 600 mg Documented By: AMIE Lamotrigine (Lamotrigine 100 Mg Tab) 100 mg PO HS JAGDISH; Protocol Stop: 04/16/25 20:59 Last Admin: 03/22/25 20:59 Dose: 100 mg Documented By: Admin: 03/21/25 21:29 Dose: 100 mg Documented By: Admin: 03/20/25 21:11 Dose: 100 mg Documented By: Admin: 03/19/25 21:41 Dose: 100 mg Documented By: Admin: 03/18/25 19:58 Dose: 100 mg Documented By: Admin: 03/17/25 21:04 Dose: 100 mg Documented By: CARLOS Levothyroxine Sodium (Levothyroxine Sodium 75 Mcg Tablet) 75 mcg PO DAILYBB [facility] Stop: 04/17/25 06:29 Last Admin: 03/23/25 05:44 Dose: 75 mcg Documented By: Admin: 03/22/25 06:03 Dose: 75 mcg Documented By: Admin: 03/21/25 06:20 Dose: 75 mcg Documented By: Admin: 03/20/25 06:11 Dose: 75 mcg Documented By: Admin: 03/19/25 06:05 Dose: 75 mcg Documented By: Admin: 03/18/25 05:45 Dose: 75 mcg Documented By: CARLOS Polyethylene Glycol (Polyethylene (Miralax) 17 Gm Pack) 17 gm PO DAILY [facility] Stop: 04/22/25 08:59 Last Admin: 03/23/25 09:19 Dose: 17 gm Documented By: TAWANA Pyridoxine HCl (Pyridoxine Hcl 50 Mg Tab) 100 mg PO BID [facility] Stop: 04/16/25 20:59 Last Admin: 03/23/25 08:07 Dose: 100 mg Documented By: Admin: 03/22/25 20:58 Dose: 100 mg Documented By: Admin: 03/22/25 08:08 Dose: 100 mg Documented By: Admin: 03/21/25 21:31 Dose: 100 mg Documented By: Admin: 03/21/25 08:38 Dose: 100 mg Documented By: Admin: 03/20/25 21:11 Dose: 100 mg Documented By: Admin: 03/20/25 08:52 Dose: 100 mg Documented By: Admin: 03/19/25 21:40 Dose: 100 mg Documented By: Admin: 03/19/25 08:15 Dose: 100 mg Documented By: Admin: 03/18/25 19:58 Dose: 100 mg Documented By: Admin: 03/18/25 08:15 Dose: 100 mg Documented By: Admin: 03/17/25 21:04 Dose: 100 mg Documented By: CARLOS Senna/Docusate Sodium (Docusate Sodium/Senna 50/8.6mg Tab) 2 tab PO HS JAGDISH Stop: 04/16/25 20:59 Last Admin: 03/22/25 20:58 Dose: 2 tab Documented By: Admin: 03/21/25 21:29 Dose: 2 tab Documented By: Admin: 03/20/25 21:11 Dose: 2 tab Documented By: Admin: 03/19/25 21:42 Dose: 2 tab Documented By: Admin: 03/18/25 19:55 Dose: 2 tab Documented By: Admin: 03/17/25 21:05 Dose: 2 tab Documented By: CARLOS Simvastatin (Simvastatin 10 Mg Tab) 10 mg PO HS JAGDISH Stop: 04/16/25 20:59 Last Admin: 03/22/25 20:59 Dose: 10 mg Documented By: Admin: 03/21/25 21:30 Dose: 10 mg Documented By: Admin: 03/20/25 21:10 Dose: 10 mg Documented By: Admin: 03/19/25 21:40 Dose: 10 mg Documented By: Admin: 03/18/25 19:59 Dose: 10 mg Documented By: Admin: 03/17/25 21:04 Dose: 10 mg Documented By: CARLOS Valbenazine (Valbenazine Tosylate 80 Mg Cap) 1 each PO HS JAGDISH Stop: 04/16/25 20:59 Last Admin: 03/22/25 21:00 Dose: 1 each Documented By: Admin: 03/21/25 21:30 Dose: 1 each Documented By: Admin: 03/20/25 21:11 Dose: 1 each Documented By: Admin: 03/19/25 21:43 Dose: 1 each Documented By: Admin: 03/18/25 20:00 Dose: 1 each Documented By: Admin: 03/17/25 21:05 Dose: 1 each Documented By: CARLOS Vitamin D (Cholecalciferol 25 Mcg (1000 Units) Tab) 75 mcg PO DAILY JAGDISH Stop: 04/17/25 08:59 Last Admin: 03/23/25 08:07 Dose: 75 mcg Documented By: Admin: 03/22/25 08:09 Dose: 75 mcg Documented By: Admin: 03/21/25 08:38 Dose: 75 mcg Documented By: Admin: 03/20/25 08:52 Dose: 75 mcg Documented By: Admin: 03/19/25 08:15 Dose: 75 mcg Documented By: Admin: 03/18/25 08:15 Dose: 75 mcg Documented By: ROBERTA
[2025-03-24 08:30] LABS: Hematocrit (blood only) 43.7 % (42.0-52.0); Mean Corpuscular Hemoglobin 32.4 pg (25.0-34.0); Mean Corpuscular Hgb Conc 34.3 g/dL (32.0-36.0); Mean Corpuscular Volume 94.4 fL (80.0-100.0); Mean Platelet Volume 9.8 fL (9.4-12.4); Platelet Count 164 K/uL (130-400); RDW Coefficient of Variation 13.3 % (11.5-14.5); RDW Standard Deviation 46.5 fL (36.4-46.3); Red Blood Count 4.63 M/uL (4.70-6.10); White Blood Count 7.32 K/ul (4.8-10.8)
[2025-03-24 08:48] LABS: BUN Creatinine Ratio 22.2 (10-20); Creatinine Clr Calc Pharmacy 138.5 ml/min
--- NOTE | 2025-03-24 14:46 | Hospitalist Progress Note ---
Date of Service March 24, 2025 Assessment & Plan (1) Benign localized prostatic hyperplasia with lower urinary tract symptoms (LUTS): (2) Hyperlipidemia: (3) High blood pressure: (4) Sleep apnea: (5) Bladder mass: (6) Depression: (7) Ambulatory dysfunction: Plan The patient is a 74-year-old male who presented to the ED on with ambulatory dysfunction s/p bilateral knee steroid injections 03/16/2025 Osteoarthritis Ambulatory dysfunction Continue home pain control with Percocet, add lidocaine PT/OT, appreciate ortho input S/p bilateral knee steroid injections 03/16/2025 with chronic OA No active S/S of septic arthritis -awaiting SNF placement Hx DORETHA: Continue CPAP at bedtime Hx hypothyroidism: Continue levothyroxine Hx BPH: Continue finasteride Hx anxiety: Continue Wellbutrin/Lamictal DVT px: lovenox sc pt/ot, awaiting snf, cm to assist w/ dc plan, pt stable for dc. Admission and Anticipated Discharge Date Admission Date: March 17, 2025 Subjective Patient seen and examined at bedside. Patient doing well today. Pt denies any new medical complaints since yesterday. Physical Exam Physical Exam: Gen: A&O 3 NAD HEENT: NCAT, EOMI, not icteric. External ears normal. No rhinorrhea. Moist mucous membranes. Neck: Supple, full range of motion, no observable masses, No meningeal sign. Lungs: No Respiratory distress. CV: RRR, no edema. Abdomen: Soft, nondistended, No rebound tenderness. MSK: No joint swelling, no redness. no tenderness to palpation on knees bilaterally Skin: No rashes, petechiae, lesions. Normal color per patient. Neuro: Normal Gait, Grossly intact. Psych: Appropriate for situation. Results & Data Results & Data Vital Signs (Past 12 Hours) Vital Signs Temp Pulse Resp BP Pulse Ox O2 Del Method 03/24/25 11:07 36.7 C 78 17 146/95 H 94 Room Air 03/24/25 07:27 36.5 C 62 20 135/85 95 Room Air 03/24/25 07:23 Room Air
[2025-03-25 07:49] VITALS: BP 145/83; PULSE 63; RESP 16; TEMP 97.3; O2SAT 98
--- NOTE | 2025-03-25 11:43 | Discharge Summary ---
Date of Service March 25, 2025 Admission HPI Per Admitting Provider The patient is a 74-year-old male with a past medical history of anxiety, BPH, obesity, sleep apnea, hypothyroidism, HTN, chronic pain, thoracic neurostimulator, who presents to the ED on 03/17/2025 with complaints of bilat eral lower extremity weakness and ambulatory dysfunction. Patient reports feeling he was unable to stand up this morning. He slid to his knees and remained on his knees for about 45 minutes unable to get up. Patient reports chronic osteoarthritis and following with orthopedics. He received bilateral knee injections yesterday 03/16/2025. He reports being unable to bear weight due to weakness. The patient denies any tenderness/redness at injection sites. Denies any fever/chills/nausea/vomiting/diarrhea/abdominal pain. On arrival to the ED, labs are fairly unremarkable. Urinalysis negative Chest x-ray negative Bilateral knee x-rays with chronic osteoarthritis changes The patient will be admitted for ambulatory dysfunction and further recommendations from PT/OT Admission Exam Per Admitting Provider Constitutional: WD/WN, vitals as above Eyes: PERRL, conjunctivae normal, anicteric sclerae ENMT: external ear and nose normal, oropharynx normal Neck: trachea midline, no thyromegaly Respiratory: normal respiratory effort, lungs clear to auscultation Cardiovascular: RRR, no murmur, no edema Gastrointestinal (Abdomen): normal bowel sounds, soft, nontender, no hepatosplenomegaly Musculoskeletal: no cyanosis or clubbing, extremities motor strength 5/5 (Bilateral lower extremity weakness, abrasions on knees from fall) Skin: no rashes, warm and dry Neurologic: PERRL, EOMI, accommodation nl, no face palsy, no dysarthria Lymphatic: no cervical or axillary lymphadenopathy Principal Diagnosis Osteoarthritis Ambulatory dysfunction Discharge Exam Gen: A&O 3 NAD HEENT: NCAT, EOMI, not icteric. External ears normal. No rhinorrhea. Moist mucous membranes. Neck: Supple, full range of motion, no observable masses, No meningeal sign. Lungs: No Respiratory distress. CV: RRR, no edema. Abdomen: Soft, nondistended, No rebound tenderness. MSK: No joint swelling, no redness. no tenderness to palpation on knees bilaterally Skin: No rashes, petechiae, lesions. Normal color per patient. Neuro: Normal Gait, Grossly intact. Psych: Appropriate for situation. Discharge Data Allergies Allergy/AdvReac Type Severity Reaction Status Date / Time furosemide Allergy Intermediate RASH Verified 03/08/21 10:52 Quinolones Allergy Intermediate RASH Verified 03/08/21 10:52 amoxicillin AdvReac Intermediate RASH Verified 03/08/21 10:52 clavulanic acid AdvReac Intermediate RASH Verified 03/08/21 10:52 Consultations 03/17/25 11:15 ED Decision to Admit Stat 03/17/25 14:01 Consult Orthopedic Surgery Routine Hospital Course (1) Benign localized prostatic hyperplasia with lower urinary tract symptoms (LUTS): (2) Hyperlipidemia: (3) High blood pressure: (4) Sleep apnea: (5) Bladder mass: (6) Depression: (7) Ambulatory dysfunction: Plan The patient is a 74-year-old male who presented to the ED on with ambulatory dysfunction s/p bilateral knee steroid injections 03/16/2025 Osteoarthritis Ambulatory dysfunction Continue home pain control with Percocet, add lidocaine PT/OT, appreciate ortho input S/p bilateral knee steroid injections 03/16/2025 with chronic OA No active S/S of septic arthritis -to snf today Hx DORETHA: Continue CPAP at bedtime Hx hypothyroidism: Continue levothyroxine Hx BPH: Continue finasteride Hx anxiety: Continue Wellbutrin/Lamictal DVT px: lovenox sc Patient is being discharged to SNF with following instructions at the point of discharge: Follow-up with your primary care physician within a week time and likely you will need labs CBC/CMP/magnesium/phosphorus. Continue with physical therapy at nursing facility. Continue to follow-up with your orthopedics for your bilateral knee osteoarthritis. Take your medications as prescribed. Please make sure that you are able to get your medications today by calling your pharmacy before you leave the hospital so that your treatment continuity is not broken. Home Health Attestation I certify that this patient is under my care and that I, or a physicians assistant guest services manager working with me, had a face to-face encounter that meets the home health [id number] encounter requirements with this patient. The encounter with the patient was in whole, or in part, for the following medical condition, which is the primary reason for home health care (list medical condition): I certify that, based on my findings, the following services are medically necessary home health services: My clinical findings support the need for the above services because: Further, I certify that my clinical findings support that this patient is homebound (i.e. absences from home require considerable and taxing effort and are for medical reasons or sabianism services or infrequently or of short duration when for other reasons) because: Certification for Home Health Services: Based on the above findings, I certify that this patient is confined to the home and needs intermittent senior living care, physical therapy and/or speech therapy or continues to need occupational therapy. The patient is under my care, and I have initiated the establishment of the plan of care. This patient will be followed by a physician who will periodically review the plan of care. Total Time Total Time Spent Total Time Spent (In Minutes): 35 Discharge Plan Discharge Items Patient Disposition: Transfer Assisted Fac Reason For Visit: AMBULATORY DYSFUNCTION Discharge Diagnosis: Osteoarthritis Ambulatory dysfunction Activity: Resume your previous activity Non-emergency contact: Primary Care Provider Call non-emergency contact if: you have any medication questions Follow-up/Referrals: Rosemary Leonard MD [Primary Care Provider] - Diet: Heart Healthy Addtl Attending Provider Instructions: Follow-up with your primary care physician within a week time and likely you will need labs CBC/CMP/magnesium/phosphorus. Continue with physical therapy at nursing facility. Continue to follow-up with your orthopedics for your bilateral knee osteoarthritis. Take your medications as prescribed. Please make sure that you are able to get your medications today by calling your pharmacy before you leave the hospital so that your treatment continuity is not broken. Pending Studies at Discharge: No Stand-Alone Forms: My [facility] Skilled Items Patient informed of condition?: Yes DNR: No Discharge Level of Care: Skilled Communicable Disease: No Discharge Prognosis: Stable Lines: None Urinary Catheter: No Medications and DC Order Prescriptions: New clonazepam 0.5 mg Tablet 0.25 mg PO HS Qty: 4 0RF Continued multivitamin Tablet 1 tab PO QAM hydrocodone-acetaminophen 5-325 mg Tablet 0.5 tab PO TID PRN (Reason: Pain) sennosides-docusate sodium [Senna-S] 8.6-50 mg Tablet 2 tab-cap PO BID simvastatin 10 mg Tablet 10 mg PO HS acetaminophen [Tylenol Extra Strength] 500 mg Tablet 1,000 mg PO TID bupropion HCl 100 mg Tablet Sustained-Release 12 Hr 100 mg PO BID gabapentin 300 mg Capsule 600 mg PO QID pyridoxine (vitamin B6) [Vitamin B-6] 100 mg Tablet 100 mg PO BID lamotrigine 100 mg Tablet 100 mg PO HS cholecalciferol (vitamin D3) [Vitamin D3] 25 mcg (1,000 unit) Capsule 75 mcg PO PM Ingrezza 80 mg Capsule 80 mg PO HS levothyroxine 75 mcg tablet 75 mcg PO DAILY melatonin 3 mg Tablet 3 mg PO HS polyethylene glycol 3350 [Miralax] 17 gram/dose Powder 17 g PO DAILY PRN (Reason: Constipation) diclofenac sodium 1 % gel 2 g TOPICAL QID finasteride 5 mg tablet 5 mg PO .DAILY@NOON Changed aspirin 81 mg Tablet,Delayed Release (Dr/Ec) 81 mg PO QPM Qty: 0 0RF Discharge Orders: Discharge Order (Routine); Ordered 03/25/25 Ordered By: Malia Alonso Admission Data Admit Date/Time: 03/17/25 11:30 Attending Provider: Malia Alonso Admit Provider: Divya Bolivar Primary Care Provider: Rosemary Leonard Other Providers: Divya Bolivar; Ousmane Velasquez; [facility]; [place]
[2025-03-25] MEDS: LACTULOSE SYRUP 20 GM/30 ML UDC PO ONE (12:00)
== END 2025-03-25 13:25 | DRG 554 ==
LOC: ED 07:51 → SUATTDRO 11:30 → EDINP 11:30 → 3N 16:24